=== PATIENT | female | born 1975 | race Caucasian/White ===

== ENCOUNTER 2024-03-26 20:58 | Outpatient (REF) | payer OTHER, SELFPAY ==
[2024-04-03 14:07] LABS: Age Gdln ACOG Testing Note (.); HPV Aptima Negative (Negative); IGP, Aptima HPV, rfx 16/18,45 Note (.)
== END 2024-03-26 20:59 | disposition home or self-care (01) ==
LOC: LAB 20:58
PROVIDERS: PCP Family Medicine; Visit Provider Obstetrics & Gynecology
DX: Z01.419 Encounter for gynecological examination (general) (routine) without abnormal findings (principal)
CPT/HCPCS: 87624; 88175

== ENCOUNTER 2025-04-01 22:05 | Outpatient (REF) | payer OTHER, SELFPAY ==
--- OUTSIDE RECORDS SUMMARY | 2025-03-19 23:59 | XMS_ITS | Continuity of Care Document ---
Author Organization [facility] Address [address] [place] [address] Care Team Providers Care Shingle Sawyer Name Role Phone GRACE DANIELS Primary Care Physician [phone] Encounter FT_AMBFIN [id number] Date(s): 03/19/25 - 03/19/25 [facility] [address] [place] [id number]- Encounter Diagnosis Low back pain(Discharge Diagnosis) - 03/19/25 Discharge Disposition: Home (Routine DC) Attending Physician: Alana Hernandez DO Encounter Type: Clinic Allergies, Adverse Reactions, Alerts No Known Allergies Treatment Plan Future Scheduled Tests Radiology* MRI Spine Lumbar w/ + w/o Contrast 10/15/24 Immunizations Given and Recorded VaccineDateStatusRefusal ReasonFluzone PF Prefilled Syringe 2024- GivenFluzone 0.5-5ml jqyrgucmi10/31/24Recordedinfluenza virus vaccine, inactivated preservative-free quadrivalent intramuscular bfizgptauw90/13/23Given influenza virus vaccine, subeweignhi03/28/22Recordedinfluenza virus vaccine, oimfrpeymsm75/14/22Recordedinfluenza virus vaccine, pfaxaxrqoqr50/6/21Recorded influenza virus vaccine, aohzssbrgmx61/6/29VtcbvjrxSSRE-OpQ-6 (COVID-19) mRNA- 1273 wgyawmt25/30/30EcqgvnngWWEQ-EhZ-6 (COVID-19) mRNA-1273 vaccine05/02/20 XlzktstzIPDL-IgT-1 (COVID-19) mRNA-1273 /29/20Recorded Medications Adipex-P 37.5 mg Tab 37.5 mg = 1 tab(s), Oral, Daily, # 30 tab(s), Refills(s) 5, Pharmacy: [facility], 172, cm, 01/10/25 10:29:00 EDT, Height/Length Dosing, 98.7, kg, 01/10/25 10:29:00 EDT, Weight Dosing Start Date: 01/10/25 Status: Ordered Medication Dispense Status: Completed Quantity: 30.0 Unit: tab(s) Total Allowed Fills: 6 Fills Dispensed: 0 Indications: Persons encountering health services in other specified circumstances; Acute candidiasis of vulva and vagina; erythromycin Opth 0.5% Oint 0.5 in, OPTH, QID, 3.5 gram, Refill(s) 1, [facility], 172, cm, 10/15/24 11:42:00 EDT, Height/Length Dosing, 98.7, kg, 10/15/24 11:42:00 EDT, Weight Dosing Start Date: 01/07/25 Status: Ordered Medication Dispense Status: Completed Quantity: 3.5 Unit: g Total Allowed Fills: 2 Fills Dispensed: 0 Indications: Unspecified conjunctivitis; fluconazole 150 mg Tab 150 mg = 1 tab(s), Oral, Once, Take one with the onset of symptoms- may repeat in 72 hours, # 2 tab(s), Refills(s) 11, Pharmacy: [facility], 172, cm, 01/10/25 10:29:00 EDT, Height/Length Dosing, 98.7, kg, 01/10/25 10:29:00 EDT, Weight Dosing Start Date: 01/10/25 Status: Ordered Medication Dispense Status: Completed Quantity: 2.0 Unit: tab(s) Total Allowed Fills: 12 Fills Dispensed: 0 indomethacin 75 mg Cap-ER 75 mg = 1 cap(s), Oral, BID, PRN for pain, # 60 cap(s), Refills(s) 0, Pharmacy: [facility], 172, cm, 10/15/24 11:42:00 EDT, Height/Length Dosing, 98.7, kg, 10/15/24 11:42:00 EDT, Weight Dosing Start Date: 10/15/24 Status: Ordered Medication Dispense Status: Completed Quantity: 60.0 Unit: cap(s) Total Allowed Fills: 1 Fills Dispensed: 0 Indications: Other chronic pain; Dorsalgia, unspecified; Keflex 500 mg oral capsule 500 mg = 1 cap(s), Oral, Daily, # 30 cap(s), Refills(s) 6, Pharmacy: [facility], 172, cm, 01/10/25 10:29:00 EDT, Height/Length Dosing, 98.7, kg, 01/10/25 10:29:00 EDT, Weight Dosing Start Date: 01/28/25 Status: Ordered Medication Dispense Status: Completed Quantity: 30.0 Unit: cap(s) Total Allowed Fills: 7 Fills Dispensed: 0 Mirena 52 mg intrauteral device 52 mg = 1 EA, IntraUteral, Once, X 1 dose(s), # 1 EA, Refills(s) 0 Start Date: 04/08/22 Status: Ordered Medication Dispense Status: Completed Quantity: 1.0 Unit: EA Total Allowed Fills: 1 Fills Dispensed: 0 Problem List ConditionConfirmationCourseEffective DatesStatusHealth StatusInformantBMI 33.0-33.9,adultConfirmedActiveObesity (BMI 30-39.9)ConfirmedActiveExcessive dietary caloric intakeConfirmedActiveAcute on chronic back painConfirmedActive Low back painConfirmedActiveNonsmokerConfirmedActiveBreast cancer screening ConfirmedActiveAnnual physical examConfirmedActive Procedures ProcedureDateRelated DiagnosisBody SiteStatusBack braces, deviceCompleted sectionCompletedTonsillectomyCompleted Social History Social History TypeResponseSmoking StatusNever (less than 100 in lifetime);Never ; Concerns about tobacco use in household: No; Smoking Cessation Yes entered on: 01/10/25Birth SexFemaleSex Representation Patient Care team information Care Team Personnel Name: GRACE DANIELS CNP Position: [facility] - Primary Care - [facility] Member Role: Primary Care Physician Address: [address] [place] [phone] Telecom: Name: Evie Negrete Member Role: [employer]: Claims Followup Rep (Emely) Care Team Related Persons Name: ZEV COLON Name: ZEV COLON Name: ZEV COLON Name: DELISA DIAZ Name: RASHMI DIAZ Insurance Providers Guarantor name: ELEONORA DIAZ Health Plan Information #: 1 Payer: [employer] Payer Identifier: [id number] Member Number: [id number] Group Number: [id number] Subscriber Identifier: [id number] Relationship to Subscriber: Self/Patient Coverage Type: Private Health Insurance Coverage Verification Date: Telecom: [phone] Address: [facility] [id number] [place] [phone]
--- OUTSIDE RECORDS SUMMARY | 2025-04-01 09:30 | XMS_ITS | Encounter Summary ---
Author Organization [facility] Address [address] [facility] [place] [address] Care Team Providers Care Clerical Support Specialist Name Role Phone Unavailable Primary Care Provider Unavailabl e Reason for Visit * ReasonCommentsGynecologic Exam Encounter Details DateTypeDepartmentCare Team (Latest Contact Info)Pnletshxtkd90/29/2025 9:30 AM ESTProcedure Visit [facility] [address] [place] [address] Camille Ruiz PA [address] [place] [address] Well woman exam with routine gynecological exam; Breast cancer screening by mammogram Social History Tobacco UseTypesPacks/DayYears UsedDateSmoking Tobacco: Never Assessed CommentsUnknownSex and Gender InformationValueDate RecordedSex Assigned at Not on fileLegal OlhXotqnw36/15/2023 7:36 PM EDTGender IdentityNot on fileSexual OrientationNot on filedocumented as of this encounter Last Filed Vital Signs Vital SignReadingTime TakenCommentsBlood Nudzqnwm340/7204/01/2025 9:36 AM EST Pulse--Temperature--Respiratory Rate--Oxygen Saturation--Inhaled Oxygen Concentration--Nelefo32.7 kg (200 lb)04/01/2025 9:36 AM ESTHeight--Body Mass Index--documented in this encounter Progress Notes * CAMELIA Mckeon - 04/01/2025 9:30 AM EST Reason for Appointment: Patient ID: Destiny Webster is a 49 y.o. female who presents for Gynecologic Exam Patient presents today for Annual Exam. MEDICATIONS Current Outpatient Medications Medication Instructions nitrofurantoin (macrocrystal-monohydrate) (MACROBID) 100 mg, 2 times daily ALLERGIES Allergies Allergen Reactions Macrolides And Ketolides PROBLEMS Active Ambulatory Problems Diagnosis Date Noted No Active Ambulatory Problems Resolved Ambulatory Problems Diagnosis Date Noted No Resolved Ambulatory Problems No Additional Past Medical History HISTORY PAST MEDICAL HISTORY SOCIAL HISTORY No past medical history on file. Social History Tobacco Use Smoking status: Not on file Smokeless tobacco: Not on file Substance Use Topics Alcohol use: Not on file Drug use: Not on file FAMILY HISTORY No family history on file. SURGICAL HISTORY No past surgical history on file. REVIEW OF SYSTEMS Review of Systems: Review of Systems Constitutional: Negative. HENT: Negative. Eyes: Negative. Respiratory: Negative. Cardiovascular: Negative. Gastrointestinal: Negative. Genitourinary: Negative. Musculoskeletal: Negative. Skin: Negative. Neurological: Negative. All other systems reviewed and are negative. Hematological: Negative. Endocrine: Negative. Allergic/Immunologic: Negative. OBJECTIVE Objective: Physical Exam Constitutional: Appearance: Normal appearance. She is well-developed. Genitourinary: Vulva normal. Right Adnexa: not tender and no mass present. Left Adnexa: not tender and no mass present. No cervical discharge. IUD strings visualized. Breasts: Breasts are soft. Right: Normal. Left: Normal. HENT: Head: Normocephalic. Nose: Nose normal. Mouth/Throat: Mouth: Mucous membranes are moist. Cardiovascular: Rate and Rhythm: Normal rate and regular rhythm. Pulmonary: Effort: Pulmonary effort is normal. Breath sounds: Normal breath sounds. Abdominal: General: Bowel sounds are normal. There is no distension. Palpations: Abdomen is soft. Tenderness: There is no abdominal tenderness. There is no guarding or rebound. Musculoskeletal: General: No swelling. Normal range of motion. Cervical back: Normal range of motion. Right lower leg: No edema. Left lower leg: No edema. Neurological: General: No focal deficit present. Mental Status: She is alert and oriented to person, place, and time. Skin: General: Skin is warm and dry. Psychiatric: Mood and Affect: Mood normal. Behavior: Behavior normal. Vitals and nursing note reviewed. Exam conducted with a senior software project manager present. Vitals: There is no height or weight on file to calculate BMI. BP: No LMP recorded. Assessment/Plan ICD-10-CM 1. Well woman exam with routine gynecological exam Z01.419 THIN PREP TIS PAP AND HR HPV DNA 2. Breast cancer screening by mammogram Z12.31 Bilateral screening mammogram Bilateral screening mammogram Assessment/Plan Annual: Patient presents today for an annual exam. Patient states she is doing well and has no complaints. Pap was obtained without difficulty and patient given mammogram order to have scheduled/obtained. Orders Placed This Encounter Procedures Bilateral screening mammogram Follow Up: Patient is to return in one year for annual unless needed otherwise. Documented by Josie Tate MA on behalf of: CAMELIA Mckeon documented in this encounter Plan of Treatment NameTypePriorityAssociated DiagnosesOrder ScheduleBilateral screening mammogram ImagingRoutine Breast cancer screening by mammogram Expected: 04/01/2025 (Approximate), Expires: 06/01/2026THIN PREP TIS PAP AND HR HPV DNAPathology and CytologyRoutine Well woman exam with routine gynecological exam Ordered: 04/01/2025documented as of this encounter Visit Diagnoses Diagnosis Well woman exam with routine gynecological exam Routine gynecological examination Breast cancer screening by mammogram documented in this encounter
--- OUTSIDE RECORDS SUMMARY | 2025-04-01 22:08 | XMS_ITS | CCD ---
Author Organization [facility] CliniSynv Care Team Providers Care Lead Simulation Modeling Engineer Name Role Phone LAURA BARROW Referring Unavailable LAWANDA CONTRERAS Primary Care Unavailable Alison Whitt Primary Care Physician [phone] NASEEM, DR MAYES Admitting Unavailable NASEEM, DR MAYES Attending Unavailable ALISON WHITT Primary Care Unavailable NASEEM, DR MAYES Consulting Unavailable NASEEM, DR MAYES Admitting Unavailable NASEEM, DR MAYES Attending Unavailable ALISON WHITT Primary Care Unavailable NASEEM, DR MAYES Consulting Unavailable NASEEM, DR MAYES Admitting Unavailable NASEEM, DR MAYES Attending Unavailable REQUEST, DR CASIE LISTED [facility] Campos Consulting Unavailable NASEEM, DR MAYES Consulting Unavailable Alison Whitt Primary Care Physician [phone] Unavailable Primary Care Provider UnavailMACIEJ Jon Attending Unavailable JEREMIAH, GRACE A Admitting Unavailable JEREMIAH, GRACE A Attending Unavailable Ronit FISH Attending Unavailable Alison Whitt Attending Unavailable JEREMIAH, GARCE A Attending Unavailable JEREMIAH, GRACE A Attending Unavailable Alison Whitt Attending Unavailable JEREMIAH, GRACE A Attending Unavailable JEREMIAH, GRACE A Attending Unavailable JEREMIAH, GRACE A Attending Unavailable REFERRAL, SELF Admitting Unavailable REFERRAL, SELF Attending Unavailable REFERRAL, SELF Referring Unavailable NASEEMMaciej R Consulting Unavailable NASEEMDO Mayes R Consulting Unavailable Catracho GUSMANy R Consulting Unavailable JEREMIAH, GRACE A Attending Unavailable JEREMIAH, GRACE A Admitting Unavailable JEREMIAH, GRACE A Attending Unavailable JEREMIAH, GRACE A Attending Unavailable JEREMIAH, GRACE A Attending Unavailable JEREMIAH, GRACE A Attending Unavailable JEREMIAH, GRACE A Admitting Unavailable NASEEMCatrachoy R Admitting Unavailable NASEEM Maciej R Attending Unavailable Maciej GUSMAN Referring Unavailable Medications Current Medications MedicationDrug Class(es)DatesSig (Normalized)Sig (Original)acetaminophen 300 mg / butalbital 50 mg / caffeine 40 mg oral capsule (3 sources)Barbiturate, Central Nervous System Stimulant, MethylxanthineStart: 99-40-6229Ijhjzjvo oral capsule See Instructions, 30 cap(s), Refill(s) 0, one capsule every 4 hours, not to exceed 6 tablets/day, [facility], 172, cm, 02/03/23 16:04:00 EDT, Height/Length Dosing, 85.2, kg, 02/03/23 16:04:00 EDT, Weight Dosing Start Date: 04/25/23 Status: Orderedcephalexin 500 mg oral capsule (1 source)Cephalosporin AntibacterialStart: 03-26-2024 End: 41-78-3984csfn 1 capsule by mouth once dailycephalexin (Keflex) 500 MG capsule Indications: Vaginitis and vulvovaginitis Take 1 capsule (500 mg) by mouth Daily 30 capsule 03/26/2024 04/25/2024 ActiveLORazepam 0.5 mg oral tablet (2 sources)BenzodiazepineStart: 04-24-5966Fhppeh 0.5 mg Tab 0 = 1 tab(s), Oral, q8hr, PRN as needed for anxiety, # 30 tab(s), Refills(s) 0, Pharmacy: [facility], 172, cm, 04/08/22 14:58:00 EST, Height/Length Dosing, 93.9, kg,04/08/22 14:58:00 EST, Weight Dosing Start Date: 04/08/22 Status: Ordered methocarbamol 750 mg oral tablet (1 source)Muscle RelaxantStart: 02-03-2023 End: 80-98-9379twfq 1 tablet by mouth three times daily as needed for pain Robaxin-750 oral tablet 750 mg = 1 tab(s), Oral, TID, PRN as needed for pain, X 3 day(s), # 9 tab(s), Refills(s) 0, Pharmacy: [facility], 172, cm, 02/03/23 16:04:00 EDT, Height/LengthDosing, 85.2, kg, 02/03/23 16:04:00 EDT, Weight Dosing Start Date: 02/03/23 Stop Date: 02/06/23 Status: Ordered nitrofurantoin, macrocrystals 25 mg / nitrofurantoin, monohydrate 75 mg oral capsule (3 sources)Nitrofuran AntibacterialStart: 79-32-9293nxdq 1 capsule by mouth in the morningnitrofurantoin, macrocrystal-monohydrate, (Macrobid) 100 MG capsule Take 100 mg by mouth in the morning and 100 mg before bedtime. 03/22/2024 Active ondansetron 4 mg oral tablet (3 sources)Serotonin-3 Receptor AntagonistStart: 71-75-7368jdmv 1 tablet by mouth every eight hours as needed for nauseaZofran 4 mg Tab 4 mg = 1 tab(s), Oral, q8hr, PRN Nausea/Vomiting, # 12 tab(s), Refills(s) 0, Pharmacy: [facility] #[id number], 172, cm, 09/30/23 9:41:00 EDT, Height/Length Dosing, 92, kg, 09/30/23 9:41:00 EDT, Weight Dosing Start Date: 01/04/24 Status: Ordered phentermine hydrochloride 37.5 mg oral tablet (3 sources)Sympathomimetic Amine AnorecticStart: 31-01-2480ntph 1 tablet by mouth once dailyphentermine 37.5 mg Tab 37.5 mg = 1 tab(s), Oral, Daily, # 30 tab(s), Refills(s) 0, Pharmacy: [facility], 172, cm, 09/30/23 9:41:00 EDT, Height/Length Dosing, 92, kg, 09/30/23 9:41:00EDT, Weight Dosing Start Date: 09/30/23 Status: OrderedStart: 61-30-7756sifw 1 tablet by mouth once dailyphentermine 37.5 mg Tab 37.5 mg = 1 tab(s), Oral, Daily, # 30 tab(s), Refills(s) 1, Pharmacy: [facility], 186, cm, 01/14/23 8:23:00 EDT, Height/Length Dosing, 84.4, kg, 01/14/23 8:23:00 EDT, Weight Dosing Start Date: 01/14/23 Status: OrderedpredniSONE 20 mg oral tablet (1 source)Start: 02-03-2023 End: 57-11-9889fqch 2 tablets by mouth once dailypredniSONE 20 mg Tab 40 mg = 2 tab(s), Oral, Daily, X 5 day(s), # 10 tab(s), Refills(s) 0, Pharmacy: [facility], 172, cm, 02/03/23 16:04:00 EDT, Height/Length Dosing, 85.2, kg, 02/03/23 16:04:00 EDT, Weight Dosing Start Date: 02/03/23 Stop Date: 02/08/23 Status: Ordered Completed/Discontinued Medications MedicationDrug Class(es)DatesSig (Normalized)Sig (Original)fluconazole 150 mg oral tablet (1 source)Azole AntifungalStart: 36-47-0568etuw 1 tablet by mouth onceDiflucan 150 mg Tab 150 mg = 1 tab(s), Oral, Once, Take one tablet now; may repeat in 72 hours, # 2tab(s), Refills(s) 0, Pharmacy: [facility]/pharmacy #[id number], 172, cm, 09/30/23 9:41:00 EDT, Height/Length Dosing, 92, kg, 09/30/23 9:41:00 EDT, Weight Dosing Start Date: 02/02/24 Status: Orderedlevonorgestrel 0.773683 mg/hr intrauterine system (9 sources)Progestin, Progestin-containing Intrauterine DeviceStart: 02-28-2024 End: 17-45-0583Dluotbxkabmnls intrauterine device 52 mgStart: 02-28-2024 End: 40-95-583252 mg, Intrauterine, Once PRN Procedure, Starting on Tue02/28/24 at 1030, For 1 doseStart: 63-86-1958Yglmnw 52 mg intrauteral device 52 mg = 1 EA, IntraUteral, Once, X 1 dose(s), # 1 EA, Refills(s) 0 Start Date: 04/08/22 Status: Ordered Problems Active Problems Problem ClassificationProblemDateDocumented DateEpisodic/ChronicContraceptive and procreative management (2 sources)Contraception status; Translations: [Encounter for removal and reinsertion of intrauterine contraceptive device]54-27-9840NgsvvggxCazjx nutritional; endocrine; and metabolic disorders (5 sources)Calorie -66-8479FesgswbTwnvx nutritional; endocrine; and metabolic disorders (5 sources)Mmjuwnigix54-09-1383HhdqaxulUeaxh screening for suspected conditions (not mental disorders or infectious disease) (8 sources)Screening for malignant neoplasm of colon done; Translations: [Encounter for screening for malignant neoplasm of colon]Onset: 06-12-2021 EpisodicSpondylosis; intervertebral disc disorders; other back problems (1 source)Backache; Translations: [Dorsalgia, unspecified]Onset: 02-03-2023 EpisodicUnclassified (12 sources)Patient encounter ioktox41-44-8209 Past or Other Problems Problem ClassificationProblemDateDocumented DateEpisodic/ChronicAbdominal pain (4 sources)Pelvic and perineal pain; Translations: [PELVIC AND PERINEAL PAIN] Onset: 80-71-4871MuzrdsztDqjorhynkjjuc and screening for infectious disease (1 source)Encounter for screening for human papillomavirus (HPV); Translations: [ENC SCREENING HUMAN PAPILLOMAVIRUS]Onset: 77-97-4772CrpqlpzwCixcwpm cyst (1 source)Other ovarian cyst, right side; Translations: [OTHER OVARIAN CYST RIGHT SIDE]Onset: 94-57-2273Tueecoef Results Test NameValueInterpretationReference RangeFacilityFami Medicine Office/Clinic Noteon 22-11-5895Lavxfj Medicine Office/Clinic NoteFamily Medicine Office/Clinic Note Chief Complaint Weight management & yeast infection History of Present Illness 49 year old patient presents today to discuss weight management. She reports she has been having difficulty losing weight since the beginning of this year. She states she would like to lose 20 pounds. Her goal weight is 200 lbs. She reports she has increased her H2O intake, has decreased snacking, and has focused on smaller portions. She has used adipex in the past with positive results. She would like to try this medication again. She is aware she needs to show progress of 5% weight loss over 90 days. Review of Systems Constitutional: no fever, no chills, no sweats, no weakness Respiratory: no shortness of breath, no cough, no orthopnea, no wheezing Cardiovascular: no chest pain, no palpitations, no edema Additional ROS info: Except as noted in the above Review of Systems and in the History of Present Illness all other systems have been reviewed and are negative or noncontributory. Physical Exam General: alert, no acute distress Cardiovascular: regular rate and rhythm, normal peripheral perfusion Respiratory: Lungs CTA, respirations non labored Extremities: no deformity, no trauma Neurological: oriented x 4, LOC appropriate for [facility] normal Assessment/Plan 1. Encounter for weight management (Z76.89: Persons encountering health services in other specifiedcircumstances) BMI 33.36 today in the office Discuss medication for weight loss OARRS reviewed today and found to be appropriate Start phentermine 37.5 mg take one tablet po in the AM Encourage daily exercise & portion control Explained to patient medication can be prescribed monthly when patient shows progress and a 5 % weight reduction in 3 months f/u in 4 weeks Ordered: phentermine, 37.5 mg = 1 tab(s), Oral, Daily, # 30 tab(s), Refills(s) 5, Pharmacy: [facility], 172, cm, 01/10/25 10:29:00 EDT, Height/Length Dosing, 98.7, kg, 01/10/25 10:29:00 EDT, Weight Dosing 2. Vaginal yeast infection (B37.31: Acute candidiasis of vulva and vagina) Ordered: Orders: fluconazole, 150 mg = 1 tab(s), Oral, Once, Take one with the onset of symptoms- may repeat in 72 hours, # 2 tab(s), Refills(s) 11, Pharmacy: [facility], 172, cm, 01/10/25 10:29:00 EDT, Height/Length Dosing, 98.7, kg, 01/10/25 10:29:00 EDT, Weight... Follow-up No qualifying data available Patient Education Vaginal Yeast Infection, Adult Problem List/Past Medical History Ongoing Acute on chronic back pain Annual physical exam BMI 33.0-33.9,adult Breast cancer screening Excessive dietary caloric intake Low back pain Nonsmoker Obesity (BMI 30-39.9) Historical No qualifying data Procedure/Surgical History Back braces, device, section, Tonsillectomy. Medications Adipex-P 37.5 mg Tab, 37.5 mg= 1 tab(s), Oral, Daily, 5 refills erythromycin Opth 0.5% Oint, 0.5 in, OPTH, QID, 1 refills fluconazole 150 mg Tab, 150 mg= 1 tab(s), Oral, Once, 11 refills indomethacin 75 mg Cap-ER, 75 mg= 1 cap(s), Oral, BID, PRN Mirena 52 mg intrauteral device, 52 mg= 1 EA, IntraUteral, Once Allergies No Known Allergies Social History Alcohol Current. Wine. 1-2 times per week., 05/24/2024 Substance Abuse - Denies Substance Abuse, 04/08/2022 Never., 05/24/2024 Tobacco - Denies Tobacco Use, 04/08/2022 Never (less than 100 in lifetime) Tobacco Use:. Never Smokeless Tobacco Use:. Household tobacco concerns: No. Yes, 01/10/2025 Family History Heart disease: Father. Hypertension: Mother. Hypothyroidism: Mother. Immunizations Vaccine Date Status influenza virus vaccine, inactivated 02/02/2024 Recorded influenza virus vaccine, inactivated 01/14/2023 Given influenza virus vaccine, inactivated 01/29/2022 Recorded influenza virus vaccine, inactivated 01/15/2022 Recorded SARS-CoV-2 (COVID-19) mRNA-1273 vaccine 03/03/2021 Recorded influenza virus vaccine, inactivated 01/07/2021 Recorded SARS-CoV-2 (COVID-19) mRNA-1273 vaccine 05/02/2020 Recorded SARS-CoV-2 (COVID-19) mRNA-1273 vaccine 04/01/2020 Recorded influenza virus vaccine, inactivated 02/07/2015 RecordedOhioHealth Mansfield HospitalComment on above:Result Comment: Electronically Signed By: GRACE DANIELS CNP\.bello\Date and Time Signed: 01/10/25 12:08 EDTAmbulatory Visit Summaryon 90-37-8792Jjijuidose Visit SummaryAmbulatory Visit Summary ELEONORA DIAZ :1975 Visit Date:10/15/2024 Ambulatory Visit Instructions Your Diagnosis Acute on chronic back pain BMI 33.0-33.9,adult Obesity (BMI 30-39.9) Your Care Team Attending Physician - GRACE DANIELS CNP Primary Care Physician - GRACE DANIELS CNP This Is Your Medications List cephalexin (Keflex 500 mg Cap) indomethacin (indomethacin 75 mg Cap-ER) levonorgestrel (Mirena 52 mg intrauteral device) Procedures Performed Back braces, device, section, Tonsillectomy. Discharge Vitals Temperature (Oral) 36.8 ???C Heart Rate (Peripheral) 100 Respiratory Rate 18 Blood Pressure 120/80 Height 172 cm Height 68 in Weight 98.7 kg Weight 217.596 lb BMI 33.36 What to do next You Need to Complete the Following XR Spine Lumbosacral Minimum 4 Views, 10/15/24, Routine, Order for future visit, Transport Mode: Ambulatory, Reason: Back pain, No, Acute on chronic back pain, pp_set_radiology_subspecialty, Mora -Brendan Medications What How Much When Why Instructions New indomethacin (indomethacin 75 mg Cap-ER) 1 Capsules By Mouth 2 times a day as needed for for pain Acute on chronic back pain Other chronic pain Pickup at [facility] Unchanged cephalexin (Keflex 500 mg Cap) 1 Capsules By Mouth Every day Unchanged levonorgestrel (Mirena 52 mg intrauteral device) 1 Each Intrauteral Once Duration: 1 Doses Pharmacy Information [facility]: [address], [place] [id number] [phone] Allergies No Known Allergies Problems Ongoing - Any problem that you are currently receiving treatment for. Acute on chronic back pain Annual physical exam BMI 33.0-33.9,adult Breast cancer screening Excessive dietary caloric intake Low back pain Obesity (BMI 30-39.9) Overweight Patient Survey You may receive a survey via text or e-mail asking about your office visit. Please share your experience with us by completing your survey. We appreciate your feedback and thank you for choosing us for your care. Patient Portal You may access all of your results and other medical record information on our secure patient portal. If you are not signed up for this yet, please contact [employer] at [phone] to get signed up today. Language Information Language assistance services are available as needed. NormalFisher [facility] Medicine Office/Clinic Noteon 03-57-1947Baujyn Medicine Office/Clinic NoteFacape cod and the islands [facility] Medicine Office/Clinic Note Chief Complaint Acute Visit HPI Staff Pt presents today for back pain. Pain characteristics: Pain location: Back Intensity:6/10 Onset: cpl weeks ago History of Present Illness Patient presents today for acute on chronic back pain. She reports she has had prior back surgery and about 1 1/2 weeks ago she had a flare of her back pain. She had a kenalog injection at that time which helped short term. She reports she reports yesterday she went to get out of her van and she felt something pull in her back again at that time she was barely able to walk and she was having extreme difficulty getting on the and out of her vehicle she states she almost vomited from the pain. She notified this provider and a Medrol Dosepak was sent into her pharmacy she had also tried some meloxicam and a muscle relaxer she took a indomethacin with some relief. she rates her pain a 9/10. Review of Systems PHQ Score Initial Depression Screen Score: 0 SCORE Physical Exam Vitals & Measurements T: 36.8 ???C(Oral) HR: 100(Peripheral) RR: 18 BP: 120/80 SpO2: 96% HT: 68 in HT: 172 cm WT: 217.596 lb WT: 98.7 kg BMI: 33.36 General: alert, no acute distress Skin: warm, dry Cardiovascular: regular rate and rhythm, normal peripheral perfusion Respiratory: Lungs CTA, respirations non labored Back: Moderate tenderness, Abnormal ROM, Extremities: no deformity, no trauma Neurological: oriented x 4, LOC appropriate for age, CN II-XII intact, motor strength equal Assessment/Plan 1. Acute on chronic back pain (M54.9: Dorsalgia, unspecified) Start indomethacin 75 mg ER Continue the medrol dose pack awaiting Xray results OARRS reviewed and found to be appropriate Medication Agreement completed today. F/U to be determined. Ordered: acetaminophen-hydrocodone, 1 tab(s), Oral, q4hr for pain for 2 day(s), 10 tab(s), Refill(s) 0, [facility], cm, 10/15/24 11:42:00 EDT, Height/Length Dosing, 98.7, kg, 10/15/24 11:42:00 EDT, Weight Dosing indomethacin, 75 mg = 1 cap(s), Oral, BID, PRN for pain, # 60 cap(s), Refills(s) 0, Pharmacy: [facility], 172, cm, 10/15/24 11:42:00 EDT, Height/Length Dosing, 98.7, kg, 10/15/24 11:42:00 EDT, Weight Dosing XR Spine Lumbosacral Minimum 4 Views 2. BMI 33.0-33.9,adult (Z68.33: Body mass index [BMI] 33.0-33.9, adult) BMI 33.36 3. Obesity (BMI 30-39.9) (E66.9: Obesity, unspecified) The standard range for ages 18 and older is >=18.5 and < 25 kg/m2. Your BMI today was above this range, this falls in the overweight to obese category and there are medical benefits to weight loss. We can offer counselling, referral, and/or medical support in addressing this problem. Your BMIand weight management will be followed at subsequent visits. Orders: fluconazole, 150 mg = 1 tab(s), Oral, Once, Take one tablet with the onset of symtoms; may repeat in 72 hours, # 2 tab(s), Refills(s) 0, Pharmacy: [facility] #[id number], 172, cm, 05/25/24 9:23:00 EST, Height/Length Dosing, 97.8, kg, 05/25/24 9:23:00 EST, Weight Dosing fluconazole, 150 mg = 1 tab(s), Oral, q7day, # 4 tab(s), Refills(s) 0, Pharmacy: [facility]/pharmacy #[id number], 172, cm, 05/25/24 9:23:00 EST, Height/Length Dosing, 97.8, kg, 05/25/24 9:23:00 EST, Weight Dosing ondansetron, 4 mg = 1 tab(s), Oral, q8hr, PRN Nausea/Vomiting, # 12 tab(s), Refills(s) 0, Pharmacy:[facility]/pharmacy #[id number], 172, cm, 09/30/23 9:41:00 EDT, Height/Length Dosing, 92, kg, 09/30/23 9:41:00 EDT, Weight Dosing Follow-up No qualifying data available Patient Education Acute Back Pain, Adult Problem List/Past Medical History Ongoing Acute on chronic back pain Annual physical exam BMI 33.0-33.9,adult Breast cancer screening Excessive dietary caloric intake Low back pain Obesity (BMI 30-39.9) Overweight Historical No qualifying data Procedure/Surgical History Back braces, device, section, Tonsillectomy. Medications indomethacin 75 mg Cap-ER, 75 mg= 1 cap(s), Oral, BID, PRN Mirena 52 mg intrauteral device, 52 mg= 1 EA, IntraUteral, Once [place] 325 mg-5 mg oral tablet, 1 tab(s), Oral, q4hr, PRN Allergies No Known Allergies Social History Alcohol Current. Wine. 1-2 times per week., 05/24/2024 Substance Abuse - Denies Substance Abuse, 04/08/2022 Never., 05/24/2024 Tobacco - Denies Tobacco Use, 04/08/2022 Never (less than 100 in lifetime) Tobacco Use:. Never Smokeless Tobacco Use:. Household tobacco concerns: No. Yes, 10/15/2024 Family History Heart disease: Father. Hypertension: Mother. Hypothyroidism: Mother. Immunizations Vaccine Date Status influenza virus vaccine, inactivated 02/02/2024 Recorded influenza virus vaccine, inactivated 01/14/2023 Given influenza virus vaccine, inactivated 01/29/2022 Recorded influenza virus vaccine, inactivated 01/15/2022 Recorded SARS-CoV-2 (COVID-19) mRNA-1273 vaccine 03/03/2021 Recorded influenza virus vaccine, inactivated 01/07/2021 Recorded SARS-CoV (more content not included)...[facility] Mansfield HospitalComment on above:Result Comment: Electronically Signed By: GRACE DANIELS CNP\jason\Date and Time Signed: 10/15/24 12:20 EDTXR Spine Lumbosacral Minimum 4 Viewson 24-66-2010CQ Spine Lumbosacral Minimum 4 ViewsExam Date/Time: 10/15/2024 13:23 EDT Reason for Exam: Back pain Report IMPRESSION: NO ACUTE OSSEOUS ABNORMALITY OR SIGNIFICANT INTERVAL CHANGE. EXAMINATION: XR Spine Lumbosacral Minimum 4 Views TECHNIQUE: AP, lateral, bilateral oblique views of the lumbar spine and AP and lateral coned down view of the lumbosacral junction HISTORY: Low back pain COMPARISONS: Lumbar spine radiographs 02/03/2023. FINDINGS: Lumbar spine alignment is within normal limits. Stable chronic mild compression deformity of L1. Lumbar vertebral body heights are otherwise maintained. Moderate intervertebral disc height loss at L5-S1. No acute fracture. No spondylolysis or spondylolisthesis. Postsurgical changes of thoracolumbar spine fusion again identified. Ordering Provider: GRACE DANIELS FINAL REPORT Dictated: 10/15/2024 2:37 pm Carlos Franz DO Signed (Electronic Signature): 10/15/2024 2:37 pm Signed by: Carlos Franz DO Transcribed by: PAO Technologist: [facility] CenterMA Mamm Diag w/CAD if perf and 3D RTon [id number] Mamm Diag w/CAD if perf and 3D RT Exam Date/Time: 05/29/2024 13:16 EST Reason for Exam: R92.8 Report IMPRESSION: BIRADS 2 BENIGN FINDINGS, NORMAL INTERVAL FOLLOW-UP Follow-up: 12 MONTH RECALL Category C - The breasts are heterogeneously dense, which may obscure small masses. EXAM: MA Mamm Diag w/CAD if perf and 3D RT, US Breast Unilateral Rt Complete DATE: 05/29/2024 1:02 PM CLINICAL HISTORY: R92.8. COMPARISONS: Screening mammograms, most recently 05/18/2024. TECHNIQUE: Full field ML and focal compression 2D mammograms and 3D breast tomosynthesis were obtained of the right breast. Ultrasound was performed at all clock face positions and in the central/retroareolar region of the right breast. FINDINGS: There is persistence of an ovoid density within the superior right breast at an anterior depth breast diagnostic mammography. Ultrasound, at the 12:00 position of the right breast is an approximately 1.8 x 1.8 x 1.0 cm simple cyst, which accounts for the mammographic area of concern. A few other smaller simple cysts are noted elsewhere. There are no suspicious features, worrisome masses, dilated ducts, lymphadenopathy, or other findings of concern identified. Dense Breast: Yes. CAD analysis was performed and used in the interpretation. Board Certified Radiologists. Accredited by the ACR and FDA. MAMMOGRAPHY IS VERY IMPORTANT TO YOUR HEALTH. THE CURRENT [employer] AND [employer]WORK GUIDELINES RECOMMENDS ANNUAL MAMMOGRAPHY BEGINNING AT AGE 40. THIS FACILITY UTILIZES A REMINDER SYSTEM TO ENSURE ALL PATIENTS RECEIVE REMINDER Report NOTIFICATIONS AT THE APPROPRIATE TIME BASED ON THE RECOMMENDATIONS OF THIS EXAM. Ordering Provider: Maciej GUSMAN FINAL REPORT Dictated: 05/29/2024 3:17 pm Yousif Cunningham MD Signed (Electronic Signature): 05/29/2024 3:17 pm Signed by: Yousif Cunningham MD Transcribed by: PAO Technologist: [facility] Assessment: BI-RADS Category 2-Benign finding Recommendation: Normal interval follow-upOhioHealth Mansfield HospitalUS Breast Unilateral Rt Completeon 52-61-6095WB Breast Unilateral Rt CompleteExam Date/Time: 05/29/2024 13:47 EST Reason for Exam: R92.8 Report PLEASE SEE MA Mamm Diag w/CAD if perf and 3D RT REPORT DATED: 05/29/2024. Ordering Provider: Maciej GUSMAN FINAL REPORT Dictated: 05/29/2024 3:17 pm Yousif Cunningham MD Signed (Electronic Signature): 05/29/2024 3:17 pm Signed by: Yousif Cunningham MD Transcribed by: PAO Technologist: [facility] w/ Auto Diffon 40-02-9518Klhjdgwbe/100 WBC (Bld)0.2 %Normal0.0-2.0[facility] HospitalComment on above:Performed By: #### [id number] #### [facility] [address], [place] [address]Sbptitact/Leukocytes Auto (Bld) [Pure # fraction]0.0 E9/LNormal 0.0-0.2FKettering Health Behavioral Medical CenterComment on above:Performed By: #### [id number] #### [facility] [address], [place] [address]Xvsfsypjljb (Bld) [#/Vol]0.2 E9/LNormal0.0-0.5FKettering Health Behavioral Medical CenterComment on above:Performed By: #### [id number] #### [facility] [address] [place] [address]Tdkkzryvvuk/100 WBC (Bld)2.0 %Normal0.0-8.0[facility] HospitalComment on above:Performed By: #### [id number] #### [facility] Laboratory [address] [place] [address] 16652Ykfkbwbrvlq distribution width (RBC) [Ratio]12.8 %Normal 10.9-14.2FKettering Health Behavioral Medical CenterComment on above:Performed By: #### [id number] #### [facility] Laboratory [address] [place] [address] 86638Exnzityhnz (Bld) [Volume fraction]46.0 %Uwuftw07.0-46.0[facility] HospitalComment on above:Performed By: #### [id number] #### [facility] Laboratory [address] [place] [address] 55741Rfaqvninut (Bld) [Mass/Vol]15.4 g/uVMoonhu33.0-16.0[facility] HospitalComment on above:Performed By: #### [id number] #### [facility] Laboratory [address] [place] [address] 81968Egfjkoiqiuf (Bld) [#/Vol]2.8 E9/LNormal1.0-4.0[facility] HospitalComment on above:Performed By: #### [id number] #### [facility] Laboratory [address] [place] [address] 36074Jaysagflrji/100 WBC (Bld)30.0 %Xhilbv85.0-50.0[facility] HospitalComment on above:Performed By: #### [id number] #### [facility] Laboratory [address] [place] [address] 13935GQI (RBC) [Entitic mass]31.8 pxKobnkh98.0-34.0[facility] HospitalComment on above:Performed By: #### [id number] #### [facility] Laboratory [address] [place] [address] 46511XFCR (RBC) [Mass/Vol]33.4 g/vKEhfnri66.4-36.0[facility] HospitalComment on above:Performed By: #### [id number] #### [facility] Laboratory [address] [place] [address] 65179LAZ (RBC) [Entitic vol]95.4 cTMzwxnu49.0-100.0[facility] HospitalComment on above:Performed By: #### [id number] #### [facility] Laboratory [address] [place] [address] 95174Gdsqxeglz (Bld) [#/Vol]0.5 E9/LNormal0.2-1.0[facility] HospitalComment on above:Performed By: #### [id number] #### [facility] Laboratory [address] [place] [address] 38543Zgujjllpvie (Bld) [#/Vol]5.7 E9/LNormal2.0-7.5FKettering Health Behavioral Medical CenterComment on above:Performed By: #### [id number] #### [facility] Laboratory [address] [place] [address] 80020Tdmnfherfqj/100 WBC (Bld)62.0 %Uyqqoq70.0-75.0[facility] HospitalComment on above:Performed By: #### [id number] #### [facility] Laboratory [address] [place] [address] 39877Lyszykaf mean volume (Bld) [Entitic vol]9.1 fLNormal6.4-10.8 [facility] HospitalComment on above:Performed By: #### [id number] #### [facility] Laboratory [address] [place] [address] 89349Cjjksaotp (Bld) [#/Vol]240.0 E9/ZWfvvcb489.0-500.0[facility] HospitalComment on above:Performed By: #### [id number] #### [facility] Laboratory [address] [place] [address] 65519OGM (Bld) [#/Vol]4.8 E12/LNormal4.3-5.9[facility] HospitalComment on above:Performed By: #### [id number] #### [facility] Laboratory [address], [place] [address]LSX corrected for nucl RBC Auto (Bld) [#/Vol]9.2 E9/LNormal 4.0-11.0[facility] HospitalComment on above:Performed By: #### [id number] #### [facility] Laboratory [address], [place] [address]CNIWEOJOULqscgkf By: SYSTEM SYSTEM on 71-42-0493Ajqccwu [Mass/Vol]4.3 g/dLNormal3.3 - 5.0 gm/dLRemisol ChemAlbumin/Globulin [Mass ratio] 1.7 {ratio}Normal1.1 - 2.2Remisol ChemALP [Catalytic activity/Vol]76 [iU]/d Qvcepe83 - 98 Int._Unit/LRemisol ChemALT No additional P-5'-P [Catalytic activity/Vol]13 [iU]/dNormal6 - 46 Int._Unit/LRemisol ChemAnion gap [Moles/Vol] 10 mmol/LNormal6 - 16 mEq/LRemisol ChemAST [Catalytic activity/Vol]16 [iU]/d Normal5 - 43 Int._Unit/LRemisol ChemBilirubin [Mass/Vol]0.7 mg/dLNormal0.0 - 1.1 mg/dLRemisol ChemCalcium [Mass/Vol]8.7 mg/dLLow8.9 - 11.1 mg/dLRemisol Chem Chloride [Moles/Vol]102 mmol/AGitdrr965 - 111 mmol/LRemisol ChemCholesterol [Mass/Vol]171 mg/aHHwfhnf425 - 200 mg/dLRemisol ChemCholesterol in HDL [Mass/Vol]51 mg/dLInvalid Interpretation CodeRemisol ChemComment on above:Result Comment: '>= 60 LOW RISK' '<= 40 HIGH RISK'Cholesterol in LDL [Mass/Vol]113 mg/dLNormal<=129mg/dLRemisol ChemCholesterol in VLDL [Mass/Vol]17 mg/dLNormal7 - 40 mg/dLRemisol ChemCO2 [Moles/Vol]28 mmol/LJcxkcf41 - 31 mmol/LRemisol ChemCreatinine [Mass/Vol]0.8 mg/dLNormal0.5 - 1.3 mg/dLRemisol HxqklCTA70 mL/min/1.73 m1Sgytgo>=59mL/min/1.73 j3Dqqikaq ChemGlobulin (S) [Mass/Vol]2.6 g/dLNormal1.4 - 4.0 gm/dLRemisol Chem Glucose [Mass/Vol]86 mg/yRVqrdrm53 - 199 mg/dLRemisol ChemPotassium [Moles/Vol] 4.2 mmol/LNormal3.5 - 5.3 mmol/LRemisol ChemProtein [Mass/Vol]6.9 g/dLNormal6.0 - 7.8 gm/dLRemisol ChemSodium [Moles/Vol]136 mmol/GHbkrbz489 - 145 mmol/LRemisol ChemTriglyceride [Mass/Vol]86 mg/dLNormal<=149mg/dLRemisol ChemTSH Qn2.96 m[IU]/LNormal0.34 - 5.60 mcIU/mLRemisol ChemUrea nitrogen [Mass/Vol]16 mg/dL Normal5 - 21 mg/dLRemisol ChemUrea nitrogen/Creatinine [Mass ratio]20 mg/mg Rzlevn43 - 20Remisol ChemCMPon 63-48-2150Pjhiefx [Mass/Vol]4.3 g/dLNormal3.3-5.0 [facility] HospitalComment on above:Performed By: #### [id number] #### [facility] Laboratory [address], [place] [address]Jwinuhe/Globulin (S) [Mass conc ratio]1.8Rlppuw7.1-2.2FKettering Health Behavioral Medical CenterComment on above:Performed By: #### [id number] #### [facility] Laboratory [address], [place] [address]WUP [Catalytic activity/Vol]76 Int._Unit/PMfzaqx01-67UvctumWvumedicine Barnesville HospitalComment on above:Performed By: #### [id number] #### [facility] Laboratory [address], [place] [address]NHP No additional P-5'-P [Catalytic activity/Vol]13 Int._Unit/L Normal6-46[facility] HospitalComment on above:Performed By: #### [id number] #### [facility] Laboratory [address], [place] [address]Jrawz gap [Moles/Vol]10 mmol/LNormal6-16[facility] HospitalComment on above:Performed By: #### [id number] #### [facility] Laboratory [address], [place] [address]HRU [Catalytic activity/Vol]16 Int._Unit/LNormal5-43[facility] HospitalComment on above:Performed By: #### [id number] #### [facility] Laboratory [address], [place] [address]Irfobaitf [Mass/Vol]0.7 mg/dLNormal0.0-1.1FKettering Health Behavioral Medical CenterComment on above:Performed By: #### [id number] #### [facility] Laboratory [address], [place] [address]Ofzcggq [Mass/Vol]8.7 mg/dLLow8.9-11.1FKettering Health Behavioral Medical CenterComment on above:Performed By: #### [id number] #### [facility] Laboratory [address], [place] [address]Przgxvno [Moles/Vol]102 mmol/ZTxmvxy211-637ZjlkcaWvumedicine Barnesville HospitalComment on above:Performed By: #### [id number] #### [facility] Laboratory [address], [place] [address]WB0 [Moles/Vol]28 mmol/LTqwfks67-87ZkkislWvumedicine Barnesville Hospital Comment on above:Performed By: #### [id number] #### [facility] Laboratory [address], [place] [address]Nlkrgfqumx [Mass/Vol]0.8 mg/dLNormal0.5-1.3FKettering Health Behavioral Medical CenterComment on above:Performed By: #### [id number] #### [facility] Laboratory [address], [place] [address]Hwnnlwni (S) [Mass/Vol]2.6 g/dLNormal1.4-4.0[facility] HospitalComment on above:Performed By: #### [id number] #### [facility] Laboratory [address], [place] [address]Lktkpzz [Mass/Vol]86 mg/fYAxefzc41-461RlmdinWvumedicine Barnesville HospitalComment on above:Performed By: #### [id number] #### [facility] Laboratory [address], [place] [address]Njzepnupg [Moles/Vol]4.2 mmol/LNormal3.5-5.3FKettering Health Behavioral Medical CenterComment on above:Performed By: #### [id number] #### [facility] Laboratory [address], [place] [address]Aydfegw [Mass/Vol]6.9 g/dLNormal6.0-7.8[facility] HospitalComment on above:Performed By: #### [id number] #### [facility] Laboratory [address], [place] [address]Weicim [Moles/Vol]136 mmol/WEswxgs649-457DcstysWvumedicine Barnesville HospitalComment on above:Performed By: #### [id number] #### [facility] Laboratory [address], [place] [address]Xewm nitrogen [Mass/Vol]16 mg/dLNormal5-21[facility] HospitalComment on above:Performed By: #### [id number] #### [facility] Laboratory [address], [place] [address]Tuqv nitrogen/Creatinine [Mass ratio]20 No PytewGweosz14-11 [facility] HospitalComment on above:Performed By: #### [id number] #### [facility] Laboratory [address] [place] [address]Bfvqnv Medicine Office/Clinic Noteon [id number] [facility] NoteAd[facility]/Clinic Note [facility] Staff Eleonora is a 48 year old female presenting with wellness with fasting labs Health Maintenance: Colonoscopy: Mammo: 05/18/24 Pap: Last Labs: January 14 2023 History of Present Illness Patient presents today for wellness and fasting labs. She is UTD on her PAP and mammogram. She has no additional concerns today. Review of Systems PHQ Score Initial Depression Screen Score: 0 SCORE Constitutional: no fever, no chills, no sweats, no weakness Respiratory: no shortness of breath, no cough, no orthopnea, no wheezing Cardiovascular: no chest pain, no palpitations, no edema Additional ROS info: Except as noted in the above Review of Systems and in the History of Present Illness all other systems have been reviewed and are negative or noncontributory. Physical Exam Vitals & Measurements T: 36.5 ???C(Oral) HR: 62(Peripheral) RR: 18 BP: 118/78 SpO2: 100% HT: 68 in HT: 172.0 cm WT: 97.8 kg WT: 215.612 lb BMI: 33.06 General: alert, no acute distress Skin: warm, dry Head: no trauma, normocephalic Neck: Trachea midline, no adenopathy, no tenderness Eye: normal conjunctiva, sclera clear Cardiovascular: regular rate and rhythm, normal peripheral perfusion Respiratory: Lungs CTA, respirations non labored Extremities: no deformity, no trauma Neurological: oriented x 4, LOC appropriate for age speech normal Assessment/Plan 1. Health maintenance examination (Z00.00: Encounter for general adult medical examination without abnormal findings) PAP UTD Mammogram UTD Ordered: CBC w/ Auto Diff Comprehensive Metabolic Panel Est Preventative 40 to 64 years [address] Lipid Panel TSH With T4fr Reflex Follow-up No qualifying data available Problem List/Past Medical History Ongoing Annual physical exam Breast cancer screening Excessive dietary caloric intake Overweight Historical No qualifying data Procedure/Surgical History Back braces, device, section, Tonsillectomy. Medications Fioricet oral capsule, See Instructions Mirena 52 mg intrauteral device, 52 mg= 1 EA, IntraUteral, Once Zofran 4 mg Tab, 4 mg= 1 tab(s), Oral, q8hr, PRN Allergies No Known Allergies Social History Alcohol Current. Wine. 1-2 times per week., 05/24/2024 Substance Abuse - Denies Substance Abuse, 04/08/2022 Never., 05/24/2024 Tobacco - Denies Tobacco Use, 04/08/2022 Never (less than 100 in lifetime) Tobacco Use:., 05/25/2024 Family History Heart disease: Father. Hypertension: Mother. Hypothyroidism: Mother. Immunizations Vaccine Date Status influenza virus vaccine, inactivated 02/02/2024 Recorded influenza virus vaccine, inactivated 01/14/2023 Given influenza virus vaccine, inactivated 01/29/2022 Recorded influenza virus vaccine, inactivated 01/15/2022 Recorded SARS-CoV-2 (COVID-19) mRNA-1273 vaccine 03/03/2021 Recorded influenza virus vaccine, inactivated 01/07/2021 Recorded SARS-CoV-2 (COVID-19) mRNA-1273 vaccine 05/02/2020 Recorded SARS-CoV-2 (COVID-19) mRNA-1273 vaccine 04/01/2020 Recorded influenza virus vaccine, inactivated 02/07/2015 RecordedOhioHealth Mansfield HospitalComment on above:Result Comment: Electronically Signed By: GRACE DANIELS CNP.bello\Date and Time Signed: 05/25/24 11:23 ESTHEMATOLOGYOrdered By: SYSTEM SYSTEM on 58-83-2534Auozjfntq/100 WBC (Bld)0.2 %Normal0.0 - 2.0 %Remisol HemeBasophils/Leukocytes Auto (Bld) [Pure # fraction]0.0 E9/LNormal0.0 - 0.2 E9/LRemisol HemeEosinophils (Bld) [#/Vol]0.2 E9/LNormal0.0 - 0.5 E9/LRemisol HemeEosinophils/100 WBC (Bld)2.0 %Normal0.0 - 8.0 %Remisol HemeErythrocyte distribution width (RBC) [Ratio]12.8 %Piigen82.9 - 14.2 %Remisol HemeHematocrit (Bld) [Volume fraction]46.0 %Zuqzwp15.0 - 46.0 %Remisol HemeHemoglobin (Bld) [Mass/Vol]15.4 g/jZRffftf22.0 - 16.0 gm/dLRemisol HemeLymphocytes (Bld) [#/Vol] 2.8 E9/LNormal1.0 - 4.0 E9/LRemisol HemeLymphocytes/100 WBC (Bld)30.0 %Normal 14.0 - 50.0 %Remisol HemeMCH (RBC) [Entitic mass]31.8 wwGdfdfv64.0 - 34.0 pg Remisol HemeMCHC (RBC) [Mass/Vol]33.4 g/pGVoqceg48.4 - 36.0 gm/dLRemisol HemeMCV (RBC) [Entitic vol]95.4 gBHlumyc87.0 - 100.0 fLRemisol HemeMonocytes (Bld) [#/Vol]0.5 E9/LNormal0.2 - 1.0 E9/LRemisol HemeMonocytes/100 WBC (Bld)5.8 % Normal4.0 - 14.0 %Remisol HemeNeutrophils (Bld) [#/Vol]5.7 E9/LNormal2.0 - 7.5 E9/LRemisol HemeNeutrophils/100 WBC (Bld)62.0 %Zbxtpu42.0 - 75.0 %Remisol Heme Platelet mean volume (Bld) [Entitic vol]9.1 fLNormal6.4 - 10.8 fLRemisol Heme Platelets (Bld) [#/Vol]240.0 E9/CJonqea414.0 - 500.0 E9/LRemisol HemeRBC (Bld) [#/Vol]4.8 E12/LNormal4.3 - 5.9 E12/LRemisol HemeWBC corrected for nucl RBC Auto (Bld) [#/Vol]9.2 E9/LNormal4.0 - 11.0 E9/LRemisol HemeLipid Panelon 05-25-2024 Cholesterol [Mass/Vol]171 mg/tOZsmhbq232-788XgxzdwWvumedicine Barnesville HospitalComment on above:Performed By: #### [id number] #### [facility] Laboratory [address] [place], [place] [address]Bgagvluaruh in HDL [Mass/Vol]51 mg/dLInvalid Interpretation CodeWvumedicine Barnesville HospitalComment on above:Result Comment: '>= 60 LOW RISK' '<= 40 HIGH RISK'Performed By: #### [id number] #### [facility] Laboratory [address], [place] [address]Fdebvyfmsqb in LDL [Mass/Vol]113 mg/dLNormal<=129W[facility] Barnesville HospitalComment on above:Performed By: #### [id number] #### [facility] [address], [place] [address]Dkfyptgtgmf in VLDL [Mass/Vol]17 mg/dLNormal7-40[facility] HospitalComment on above:Performed By: #### [id number] #### [facility] Laboratory [address] [place] [address]Otejfyskeofu [Mass/Vol]86 mg/dLNormal<=149W[facility] Barnes[facility] HospitalComment on above:Performed By: #### [id number] #### [facility] Laboratory [address] [place] [address]OFP With T4fr Reflexon [id number] Qn2.96 m[IU]/LNormal 0.34-5.60W[facility] HospitalComment on above:Performed By: #### [id number] #### [facility] Laboratory [address], [place] [address]tODTdb 16-68-4444nQGR86 mL/min/1.73 t1Flnotz>=59Wvumedicine Barnesville HospitalComment on above:Performed By: #### [id number] #### [facility] [address], [place] [address]ZO Mamm Screen w/CAD if perf and 3D Bilon 76-44-7280PA Mamm Screen w/CAD if perf and 3D BilExam Date/Time: 05/18/2024 11:41 EST Reason for Exam: Z12. Report IMPRESSION: BIRADS 0 - INCOMPLETE, NEED ADDITIONAL IMAGING EVALUATION.RECALL NOW. DIAGNOSTIC RIGHT MAMMOGRAM WITH SPOT COMPRESSION VIEWS AND ULTRASOUND OF THE RIGHT BREAST ARE RECOMMENDED FOR FURTHER EVALUATION. CLINICAL HISTORY: Z12.31. COMPARISON: 04/19/2022. COMMENT: Routine views and tomosynthesis views of both breasts were obtained. The breasts are heterogeneously dense, which may obscure small masses. In the anterior right breast, posterior to the nipple, there is an approximately 1.5 cm mostly obscured nodular density, and further evaluation is recommended. The left breast unremarkable in appearance. No neoplastic calcifications are noted in either breast. The examination was reviewed with Computer Aided Detection. Breast Density: Yes Mammography is very important to your health. The current [employer] and National [employer] Network guidelines recommends annual mammography beginning at age 40. This facility utilizes a reminder system to ensure all patients receive reminder notifications at the appropriate time based on the recommendations of this exam. Board Certified Radiologists. Accredited by the ACR and FDA. Ordering Provider: REFERRAL, SELF FINAL REPORT Dictated: 05/22/2024 2:49 pm Jeff Piña M.D. Signed (Electronic Signature): 05/22/2024 2:49 pm Signed by: Jeff Piña M.D. Transcribed by: PAO Technologist: CARA Assessment: BI-RADS Category 0-Incomplete: Need additional imaging evaluation Recommendation: Additional projectionsOhioHealth Mansfield Hospital IGP,APTIMA HPV,AGE GDLNon 70-49-9962TLE GDLN ACOG TESTINGNote.[facility] Comment on above:TESTS RESULT FLAG UNITS REF RANGE LAB Clinician Provided Cytology Information Source.............Cervix;Endocervix No. of containers..01 ThinPrep Vial Age Algo ACOG Analilia... FLAG LEGEND: L-Low Normal,H-High Normal,LL-Alert Low,HH-Alert High <-Panic Low,>-Panic High,A-Abnormal,AA-Critical Abnormal Performed at: 01 =[address] [address] Peri Kirby MD, HPV APTIMANegativeNegativeNOMS HealthcareComment on above:This nucleic acid amplification test detects fourteen high- risk HPV types (16,18,31,33,35,39,45,51,52,56,58,59,66,68) without differentiation. Performed at: =[facility], [place] [id number] Assembler Piano: Peri Kirby MD, Phone: [phone] Performed at: [facility] [address] [facility], [place], [place] [id number] Assembler Piano: Dony Ladd MD, Phone: [phone] IGP, APTIMA HPV, RFX 16/18,45Note.NOMS HealthcareComment on above:TESTS RESULT FLAG UNITS REF RANGE LAB DIAGNOSIS: 02 NEGATIVE FOR INTRAEPITHELIAL LESION OR MALIGNANCY. Specimen adequacy: 02 Satisfactory for evaluation. Endocervical and/or squamous metaplastic cells (endocervical component) are present. Performed by: 02 Jesus Christian, [employer] (ASCP) . 02 Note: Note 03 The Pap smear is a screening test designed to aid in the detection of premalignant and malignant conditions of the uterine cervix. It is not a diagnostic procedure and should not be used as the sole means of detecting cervical cancer. Both false-positive and false-negative reports do occur. Test Methodology: Note 03 This liquid based ThinPrep(R) pap test was screened with the use of an image guided system. HPV Genotype Reflex Note 02 Criteria not met, HPV Genotype not performed. FLAG LEGEND: L-Low Normal,H-High Normal,LL-Alert Low,HH-Alert High <-Panic Low,>-Panic High,A-Abnormal,AA-Critical Abnormal Performed at: 02 [facility] [address] [place] [address] Dony Ladd MD, 03 WB [facility] [address] [address] Peri Kirby MD, BRUSH-SPATULA CERVIX ENDOCERVIX [facility] HOSPITALNCNOSSM [facility] Health CenterI Insertionon [id number] BoresKINGS 02/29/2024 10:38 AM IUD Insertion Performed by: Maciej Gusman DO Authorized by: Maciej Gusamn DO Procedure: IUD insertion Consent obtained by patient, parent, or legal power of employee benefits attorney - including discussion of procedure risks and benefits, patient questions answered, and patient education provided: yes risk: reasonably certain the patient is not Immediately prior to procedure a time out was called: no Pelvic exam performed: no Speculum placed in vagina: yes Cervix cleaned and prepped: yes Tenaculum/Allis/Ring Forceps applied to cervix: yes Anesthesia used: no IUD inserted without complications: yes OSM: 52 mg Levonorgestrel 20 MCG/DAY Patient tolerated procedure well: yes Inserted with ultrasound guidance: no Intended removal date: 5 years Insertion comments: IUD Insertion: Patient presents today for an IUD Insertion. Patient is having a Mirena placed and written consent was obtained. Patient was placed in the dorsal lithotomy position with feet in stirrups. A sterile speculum ws placed into the vagina and the cervix was visualized. Cervix was cleansed with betadine and the anterior lip was grasped with ring forceps. Uterus was then gently sounded. New IUD device was gently advanced through the endocervix, toward te uterine fundus. The IUD was then deployed as device was gently removed from the uterus. The IUD strings were cut to the length from external os. All instruments were removed from the vagina. Post-procedure instructions given. All of patients questions were answered and she expressed understanding. Advised to call interim with any questions or concerns. Follow Up: Patient is to return to the office in 4 weeks for a string check.[facility] HospitalIUD Removalon [id number] Bores, KINGS 02/29/2024 10:38 AM IUD Removal Date/Time: 02/28/2024 4:05 PM Performed by: Maciej Gusman DO Authorized by: Maciej Gusman DO Consent: Consent obtained: Written Consent given by: Patient Procedure risks and benefits discussed: yes Patient questions answered: yes Patient agrees, verbalizes understanding, and wants to proceed: yes Educational handouts given: yes Instructions and paperwork completed: yes [place] protocol: Patient states understanding of procedure being performed: yes Relevant documents present and verified: yes Test results available and properly labeled: yes Imaging studies available: yes Required blood products, implants, devices, and special equipment available: yes Site marked: yes Procedure: Removed with no complications: yes Removal due to mechanical complications of IUD: no Removal due to infection and inflammatory reaction: no Comments: IUD Removal: Patient presents today for removal of IUD. Written consent was obtained and patient was placed in dorsal lithotomy position with feet in stirrups. A sterile speculum was inserted into the vagina and the cervix was visualized. The IUD strings were grasped gently with forceps and the IUD was removed in its entirety without difficulty. The IUD was shown to the patient then properly discarded. [facility] Medicine Office/Clinic Noteon 09-30-2023 Family Medicine Office/Clinic NoteFacape cod and [facility] Medicine Office/Clinic Note HPI Staff Eleonora is a 48 year old female presenting for one month follow up weight started adipex at [facility] Weight management Sleeping well:Yes, 6-8 hours Chest pain:No Tremors:No Headaches:No Heart fluttering:No Blurred Vision:No Starting Weight: 204.6 Weight last visit: 204.6 Weight this visit: 202.4 Onset: Today Right upper eye lid swelled and red Pt c/o yeast infection and would like refill on Diflucan History of Present Illness Patient reports today in f/u for weight management. She was started on Adipex at her last visit. She has lost 2.2 lbs since her last visit. She reports she has been eating less food and has been increasing her exercise. She reports no adverse effects of the medication. She would like to have the medication refilled at this appointment. Patient states she has a vaginal yeast infection. She states she went swimming twice over the weekend and now she has itching and burning. She states this is what normally happens when she gets into a swimming pool. She reports she got up this morning and her right eye was hurting. She states she used some erythromycin ointment in the right eye that was her daughters. She states the eye feels like there might lavinia stye starting. Review of Systems PHQ Score Initial Depression Screen Score: 0 SCORE Constitutional: no fever, no chills, no sweats, no weakness Skin: no Jaundice, no rash, no lesions, nopetechiae ENMT: no ear pain, no sore throat, no congestion, no hoarseness Respiratory: no shortness of breath, no cough, no orthopnea, no wheezing Cardiovascular: no chest pain, no palpitations, no edema Musculoskeletal: no back pain, no trauma Neurologic: no headache, no dizziness, no numbness, no weakness Psychiatric: no sleeping problems, no irritability, no mood swings/depression. Additional ROS info: Except as noted in the above Review of Systems and in the History of Present Illness all other systems have been reviewed and are negative or noncontributory. Physical Exam Vitals & Measurements HR: 94(Peripheral) RR: 18 BP: 128/78 SpO2: 98% HT: 68 in HT: 172.0 cm WT: 92 kg WT: 202.4 lb BMI: 31.1 General: alert, no acute distress Skin: warm, dry Head: no trauma, normocephalic Neck: Trachea midline, no adenopathy, no tenderness Eye: normal conjunctiva, sclera clear, right upper eyelid reddened & edematous Cardiovascular: regular rate and rhythm, normal peripheral perfusion Respiratory: Lungs CTA, respirations non labored Neurological: oriented x 4, LOC appropriate for age speech normal Psychiatric: cooperative, affect appropriate for age, normal judgement, normal psychiatric thoughts. Assessment/Plan 1. Vaginal yeast infection (B37.31: Acute candidiasis of vulva and vagina) Ordered: fluconazole, 150 mg = 1 tab(s), Oral, Once, Take one tablet now; may repeat in 72 hours if no improvement, # 2 tab(s), Refills(s) 0, Pharmacy: [facility], 172, cm, 09/02/23 9:39:00 EDT, Height/Length Dosing, 93, kg, 09/02/23 9:39:00 EDT, Weight Dosing 2. Blepharitis (H01.009: Unspecified blepharitis unspecified eye, unspecified eyelid) Ordered: bacitracin/neomycin/polymyxin B ophthalmic, 0.25 in, OPTH, QID for 5 day(s), 3.5 gm, Refill(s) 0, [facility], 172, cm, 09/02/23 9:39:00 EDT, Height/Length Dosing, 93, kg, 09/02/23 9:39:00 EDT, Weight Dosing 3. Excessive dietary caloric intake (R63.2: Polyphagia) BMI 31.1 today in the office OARRS reviewed today and found to be appropriate Continue phentermine 37.5 mg take one tablet po in the AM Encourage daily exercise & portion control f/u in 4 weeks Orders: phentermine, 37.5 mg = 1 tab(s), Oral, Daily, # 30 tab(s), Refills(s) 0, Pharmacy: [facility], 172, cm, 09/30/23 9:41:00 EDT, Height/Length Dosing, 92, kg, 09/30/23 9:41:00 EDT, Weight Dosing Follow-up With When Contact Information GRACE DANIELS CNP, FAM Within [address] [place] [phone] Business (1) Additional Instructions: Weight management Patient Education Blepharitis, Lges-xa-Oann Vaginal Yeast Infection, Adult Problem List/Past Medical History Ongoing Annual physical exam Breast cancer screening Excessive dietary caloric intake Overweight Historical No qualifying data Procedure/Surgical History Back braces, device, section, Tonsillectomy. Medications bacitracin/neomycin/polymyxin B Opth Oint, 0.25 in, OPTH, QID Fioricet oral capsule, See Instructions fluconazole 150 mg Tab, 150 mg= 1 tab(s), Oral, Once fluconazole 150 mg Tab, 300 mg= 2 tab(s), Oral, q7day, 1 refills, Still taking, not as prescribed: prn Mirena 52 mg intrauteral device, 52 mg= 1 EA, IntraUteral, Once phentermine 37.5 mg Tab, 37.5 mg= 1 tab(s), Oral, Daily Allergies No Known Allergies Social History Alcohol Current, Wine, 1-2 times per week, 04/08/2022 Substance Abuse - Denies Substance Abuse, (more content not included)... [facility] HospitalComment on above:Result Comment: Electronically Signed By: GRACE DANIELS CNP\.br\Date and Time Signed: 09/30/23 11:27 EDT Family Medicine Office/Clinic Noteon [id number] Medicine Office/Clinic NoteChief Complaint weight loss HPI Staff Patient presents for weight loss. Weight management Today's Weight: 93.0kg/205 lb Today's BMI: 31.44 History of Present Illness Patient of Dr. Whitt presents today for weight management. She reports she has been having difficulty losing weight since the beginning of this year. She states she would like to lose 20-25 pounds. Her goal weight is 180 lbs. 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 She states she weighed close to 110 lbs when she graduated from . She states she used Adipex to help with weight loss during COV and she lost 30 pounds. She would like to try Adipex again to help with weight lose. Review of Systems PHQ Score Initial Depression Screen Score: 0 SCORE Constitutional: no fever, no chills, no sweats, no weakness Respiratory: no shortness of breath, no cough, no orthopnea, no wheezing Cardiovascular: no chest pain, no palpitations, no edema Additional ROS info: Except as noted in the above Review of Systems and in the History of Present Illness all other systems have been reviewed and are negative or noncontributory. Physical Exam Vitals & Measurements HR: 83(Peripheral) BP: 120/70 SpO2: 98% HT: 67 in HT: 169 cm WT: 93 kg WT: 204.6 lb BMI: 32.56 General: alert, no acute distress Cardiovascular: regular rate and rhythm, normal peripheral perfusion Respiratory: Lungs CTA, respirations non labored Extremities: no deformity, no trauma Neurological: oriented x 4, LOC appropriate for age speech normal Assessment/Plan 1. Overweight (E66.3: Overweight) BMI 31.44 today in the office Discuss medication for weight loss OARRS reviewed today and found to be appropriate Start phentermine 37.5 mg take one tablet po in the AM Encourage daily exercise & portion control Explained to patient medication can be prescribed monthly when patient shows progress and a 10 % weight reduction in 3 months f/u in 4 weeks Ordered: phentermine, 37.5 mg = 1 tab(s), Oral, Daily, # 30 tab(s), Refills(s) 0, Pharmacy: [facility], 172, cm, 09/02/23 9:39:00 EDT, Height/Length Dosing, 93, kg, 09/02/23 9:39:00 EDT, Weight Dosing 2. BMI 31.0-31.9,adult (Z68.31: Body mass index [BMI] 31.0-31.9, adult) BMI 31.44 today in the office Discuss medication for weight loss OARRS reviewed today and found to be appropriate Start phentermine 37.5 mg take one tablet po in the AM Encourage daily exercise & portion control Explained to patient medication can be prescribed monthly when patient shows progress and a 10 % weight reduction in 3 months f/u in 4 weeks Ordered: phentermine, 37.5 mg = 1 tab(s), Oral, Daily, # 30 tab(s), Refills(s) 0, Pharmacy: [facility], 172, cm, 09/02/23 9:39:00 EDT, Height/Length Dosing, 93, kg, 09/02/23 9:39:00 EDT, Weight Dosing Orders: azithromycin, See Instructions, Take 2 Tablets by mouth day 1 and then 1 tablet by mouth for the next 4 days., # 6 tab(s), Refills(s) 0, Pharmacy: [facility], 172, cm, 02/03/23 16:04:00 EDT, Height/Length Dosing, 85.2, kg, 02/03/23 16:04:00 EDT, Xavi... ondansetron, 4 mg = 1 tab(s), Oral, q8hr, # 10 tab(s), Refills(s) 0, Pharmacy: [facility], 172, cm, 02/03/23 16:04:00 EDT, Height/Length Dosing, 85.2, kg, 02/03/23 16:04:00 EDT, Weight Dosing Follow-up With When Contact Information JEREMIAH PAIGE, JOAQUIN WILD Within [address] [place], [place] [phone] Business (1) Additional Instructions: Patient Education Preventing Health Risks of Being Overweight Problem List/Past Medical History Ongoing Annual physical exam Breast cancer screening Excessive dietary caloric intake Overweight Historical No qualifying data Procedure/Surgical History Back braces, device, section, Tonsillectomy. Medications Fioricet oral capsule, See Instructions fluconazole 150 mg Tab, 300 mg= 2 tab(s), Oral, q7day, 1 refills, Still taking, not as prescribed: prn Mirena 52 mg intrauteral device, 52 mg= 1 EA, IntraUteral, Once phentermine 37.5 mg Tab, 37.5 mg= 1 tab(s), Oral, Daily Allergies No Known Allergies Social History Alcohol Current, Wine, 1-2 times per week, 04/08/2022 Substance Abuse - Denies Substance Abuse, 04/08/2022 Tobacco - Denies Tobacco Use, 04/08/2022 Never (less than 100 in lifetime) Tobacco Use:. Never Smokeless Tobacco Use:. Household tobacco concerns: No., 09/02/2023 Family History Heart disease: Father. Hypertension: Mother. Hypothyroidism: Mother. Immunizations Vaccine Date Status influenza virus vaccine, inactivated 01/14/2023 Given influenza virus vaccine, inactivated 01/29/2022 Recorded influenza virus vaccine, inactivated 01/15/2022 Recorded SARS-CoV-2 (COVID-19) mRNA-1273 vaccine 03/03/2021 Recorded influenza virus vaccine, inactivated 01/07/2021 Recorded SARS-CoV-2 (COVID-19) mRNA-1273 vaccine 05/02/2020 Recorded SARS-CoV-2 (COVID-19) mRNA-1273 vaccine (more content not included)... [facility] HospitalComment on above:Result Comment: Electronically Signed By: GRACE DANIELS CNP\Date and Time Signed: 09/02/23 10:26 EDT Patient Educationon [id number] EducationEndocrinology Preventing Health Risks of Being Overweight Maintaining a healthy body weight is an important part of your overall health. Your healthy body weight depends on your age, gender, and height. Being overweight puts you at risk for many health problems. You can make changes to your diet and lifestyle to prevent these risks. Consider working with a health care provider or a dietitian to make these changes. How can being overweight affect me? Being overweight can affect you for your entire life. You may develop joint or bone problems that make it painful or difficult for you to play sports or do activities you enjoy. Being overweight alsoputs stress on your heart and lungs and can lead to medical problems such as: ? Heart disease. ? Diabetes. ? Some types of cancer. ? Stroke. Eating healthy and being active helps you lose weight and prevents health problems caused by being overweight. Making these changes can also help you manage stress, feel better mentally, and connect with friends and family. What can increase my risk? In addition to certain diet and lifestyle choices, some other factors that may make you more likelyto be overweight include: ? Having a family history of obesity. ? Living in an area with limited access to: ? [place], recreation centers, or sidewalks. ? Healthy food choices, such as grocery stores and farmers' markets. What actions can I take to prevent health risks of being overweight? Nutrition ? Eat only as much as your body needs. In most cases, this is about 2,000 calories a day, but the amount varies depending on your height, gender, and activity level. Ask your health care provider howmany calories you should have each day. Eating more than your body needs on a regular basis can cause you to become overweight or obese. ? Eat slowly, and stop eating when you feel full. ? Choose healthy foods, including: ? Fruits and vegetables. ? Lean meats. ? Low-fat dairy products. ? High-fiber foods, such as whole grains and beans. ? Healthy snacks like vegetable sticks, a piece of fruit, or a small amount of yogurt or cheese. ? Avoid foods and drinks that are high in sugar, salt (sodium), saturated fat, or trans fat. This includes: ? Many desserts such as candy, cookies, and ice cream. ? Soda. ? Fried foods. ? Processed, precooked, or cured meat, such as hot dogs, sausages, or meat loaves. ? Prepackaged snack foods. Lifestyle ? Exercise for at least 150 minutes a week to prevent weight gain, or as often as recommended by your health care provider. Do moderate-intensity exercise, such as brisk walking. ? Spread it out by exercising for 30 minutes 5 days a week, or in short 10- minute bursts several times a day. ? Find other ways to stay active and burn calories, such as yard work or a hobby that involves physical activity. ? Get at least 8 hours of sleep each night. When you are well rested, you are more likely to be active and make healthy choices during the day. To sleep better: ? Try to go to bed and wake up at about the same time every day. ? Keep your bedroom dark, quiet, and cool. ? Make sure that your bed is comfortable. ? Avoid stimulating activities, such as watching television or exercising, for at least an hour before bedtime. Where to find support You can get support for preventing health risks of being overweight from: ? Your health care provider or a dietitian. They can provide guidance about healthy eating and healthy lifestyle choices. ? Weight loss support groups, online or in-person. Where to find more information ? MyPlate: www.choosemyplate.gov ? This an online tool that provides personalized recommendations about foods to eat each day. ? The Centers for Disease Control and Prevention: www.cdc.gov/healthyweight ? This resource gives tips for managing weight and having an active lifestyle. Summary ? Eating healthy and being active helps you lose weight and prevents health problems caused by being overweight. ? Being overweight puts stress on your heart and lungs and can lead to medical problems such as diabetes, heart disease, some types of cancer, and stroke. This information is not intended to replace advice given to you by your health care provider. Make sure you discuss any questions you have with your health care provider. Document Revised: 10/16/2021 Document Reviewed: 10/16/2021 [employer] Patient Education ? 2022 [employer].[facility] [place] [id number] [facility] HospitalNurse Consultation Noteon [id number] Consultation NotePhysical Exam pt had Kenalog injection to Right GM tolerated well Assessment/Plan Left ear pain (H92.02: Otalgia, left ear) Medications azithromycin 250 mg Tab, See Instructions Fioricet oral capsule, See Instructions fluconazole 150 mg Tab, 300 mg= 2 tab(s), Oral, q7day, 1 refills Mirena 52 mg intrauteral device, 52 mg= 1 EA, IntraUteral, Once ondansetron 4 mg Tab, 4 mg= 1 tab(s), Oral, q8hr phentermine 37.5 mg Tab, 37.5 mg= 1 tab(s), Oral, Daily, 1 refills Allergies No Known Allergies Immunizations Vaccine Date Status influenza virus vaccine, inactivated 01/14/2023 Given influenza virus vaccine, inactivated 01/29/2022 Recorded influenza virus vaccine, inactivated 01/15/2022 Recorded SARS-CoV-2 (COVID-19) mRNA-1273 vaccine 03/03/2021 Recorded influenza virus vaccine, inactivated 01/07/2021 Recorded SARS-CoV-2 (COVID-19) mRNA-1273 vaccine 05/02/2020 Recorded SARS-CoV-2 (COVID-19) mRNA-1273 vaccine 04/01/2020 Recorded influenza virus vaccine, inactivated 02/07/2015 RecordedNormUniversity Hospitals Beachwood Medical CenterCHEMISTRYOrdered By: SYSTEM SYSTEM on [id number] [Mass/Vol] 4.3 g/dLNormal3.3 - 5.0 gm/dLFTMC RemisolAlbumin/Globulin [Mass ratio]2.7 {ratio}High1.1 - 2.2[facility] RemisolALP [Catalytic activity/Vol]64 [iU]/qCvvdln12 - 98 Int._Unit/LFTMC RemisolALT No additional P-5'-P [Catalytic activity/Vol]15 [iU]/dNormal6 - 46 Int._Unit/LFTMC RemisolAnion gap [Moles/Vol]12 mmol/LNormal6 - 16 mEq/LFTMC RemisolAST [Catalytic activity/Vol]18 [iU]/dNormal5 - 43 Int._Unit/LFTMC RemisolBilirubin [Mass/Vol]1.1 mg/dLNormal0.0 - 1.1 mg/dLFT RemisolCalcium [Mass/Vol]9.5 mg/dLNormal8.9 - 11.1 mg/dLMER[facility] [place] RemisolChloride [Moles/Vol]109 mmol/GIftmts661 - 111 mmol/LFTMC RemisolCholesterol [Mass/Vol]164 mg/oJUzgmjs945 - 200 mg/dLFT RemisolCholesterol in HDL [Mass/Vol]44 mg/dL Invalid Interpretation CodeFT RemisolComment on above:Interpretive Data: HDL > or equal to 60 mg/dL: Low cardiovascular risk HDL < 40 mg/dL : High cardiovascular riskCholesterol in LDL [Mass/Vol]97 mg/dL Normal<=129mg/dLMER[facility] [place] RemisolCholesterol in VLDL [Mass/Vol]13 mg/dLNormal7 - 40 mg/dLMER[facility] [place] RemisolCO2 [Moles/Vol]27 mmol/DZsyxph97 - 31 mmol/LFTMC Remisol Creatinine [Mass/Vol]0.9 mg/dLNormal0.5 - 1.3 mg/dLMER[facility] [place] RemisolGFR/1.73 sq M.predicted among non-blacks MDRD (S/P/Bld) [Vol rate/Area]80 mL/min/1.73 m2 Normal>=59mL/min/1.73 m2[facility] Chem SComment on above:Interpretive Data: Chronic kidney disease could be indicated at eGFR's of less than 60 mL/min/1.73m2. Kidney failure is indicated at less than 15 mL/min/1.73m2.Globulin (S) [Mass/Vol]1.6 g/dLNormal1.4 - 4.0 gm/dLFT RemisolGlucose [Mass/Vol]87 mg/dL Lbzmna18 - 199 mg/dLFT RemisolComment on above:Interpretive Data: If this glucose result represents a fasting glucose, interpretation should referto the following reference range: 55-99 mg/dLPotassium [Moles/Vol]4.8 mmol/LNormal3.5 - 5.3 mmol/LFTMC RemisolProtein [Mass/Vol]5.9 g/dLLow6.0 - 7.8 gm/dLFT Remisol Sodium [Moles/Vol]143 mmol/GQjdrgk698 - 145 mmol/LFTMC RemisolTriglyceride [Mass/Vol]67 mg/dLNormal<=149mg/dLFT RemisolUrea nitrogen [Mass/Vol]17 mg/dL Normal5 - 21 mg/dLFT RemisolUrea nitrogen/Creatinine [Mass ratio]19 mg/mg Nhcavf64 - 20FT RemisolHEMATOLOGYOrdered By: SYSTEM SYSTEM on 01-14-2023 Basophils/100 WBC (Bld)0.3 %Normal0.0 - 2.0 %[facility] HemeAutoSSBasophils/Leukocytes Auto (Bld) [Pure # fraction]0.0 E9/LNormal0.0 - 0.2 E9/LFTMC HemeAutoSS Eosinophils/100 WBC (Bld)1.5 %Normal0.0 - 8.0 %[facility] HemeAutoSS Eosinophils/Leukocytes Auto (Bld) [Pure # fraction]0.1 E9/LNormal0.0 - 0.5 E9/L [facility] HemeAutoSSLymphocytes/100 WBC (Bld)31.8 %Uvloxr84.0 - 50.0 %[facility] HemeAutoSS Lymphocytes/Leukocytes Auto (Bld) [Pure # fraction]1.9 E9/LNormal1.0 - 4.0 E9/L [facility] HemeAutoSSMonocytes/100 WBC (Bld)7.2 %Normal4.0 - 14.0 %[facility] HemeAutoSS Monocytes/Leukocytes Auto (Bld) [Pure # fraction]0.4 E9/LNormal0.2 - 1.0 E9/L [facility] HemeAutoSSNeutrophils/100 WBC (Bld)59.2 %Weohiw26.0 - 75.0 %[facility] HemeAutoSS Neutrophils/Leukocytes Auto (Bld) [Pure # fraction]3.6 E9/LNormal2.0 - 7.5 E9/L [facility] HemeAutoSSHEMATOLOGYOrdered By: Sridevi Galaviz on 50-91-3733Tdoprqnspnf distribution width (RBC) [Ratio]13.0 %Cvemiy70.9 - 14.2 %[facility] HemeAutoSS Hematocrit (Bld) [Volume fraction]45.7 %Fbmczi89.0 - 46.0 %[facility] HemeAutoSS Hemoglobin (Bld) [Mass/Vol]15.0 g/bGZxfyqd52.0 - 16.0 gm/dLFTMC HemeAutoSSMCH (RBC) [Entitic mass]31.0 qbHmmipo77.0 - 34.0 pgFTMC HemeAutoSSMCHC (RBC) [Mass/Vol]32.9 g/oVIkmkju59.4 - 36.0 gm/dLFTMC HemeAutoSSMCV (RBC) [Entitic vol] 94.3 uXOzrmbd91.0 - 100.0 fLFTMC HemeAutoSSPlatelet mean volume (Bld) [Entitic vol]8.1 fLNormal6.4 - 10.8 fLFTMC HemeAutoSSPlatelets (Bld) [#/Vol]203.0 E9/L Ysxqpd981.0 - 500.0 E9/LFTMC HemeAutoSSRBC (Bld) [#/Vol]4.8 E12/LNormal4.3 - 5.9 E12/LFTMC HemeAutoSSWBC corrected for nucl RBC Auto (Bld) [#/Vol]6.1 E9/LNormal 4.0 - 11.0 E9/LFTMC HemeAutoSSMG MAMM SCREEN 3D PALOMO CADon [id number] MAMM SCREEN 3D PALOMO CADPatient: ELEONORA DIAZ. Exam Date: 04/19/2022 : 1975 Gender:F Ordering : DR MACIEJ GUSMAN . Admission #: [id number] Family : DR. ALISON WHITT . Order #: [id number] CLICK HERE TO VIEW EXAM RADIOLOGY REPORT PROCEDURE: MAMMOGRAM SCREENING 3D BILATERAL CAD COMPARISON: MG MAMM SCREEN PALOMO W CAD, 03/06/2019. MG MAMM SCREEN 3D PALOMO CAD, 09/02/2020. INDICATIONS: Screening mammography Calculator Name NCI Breast Cancer Risk Assessment Tool 5 Year Breast Cancer Risk 1.10% Lifetime Breast Cancer Risk 13.00% Personal Breast Cancer No Personal Ovarian Cancer No Treatments None Family Cancers Aunt-maternal with breast cancer at age 50; Aunt-maternal with breast cancer at age 50. LOCATION: [facility] BREAST COMPOSITION: Extremely dense, which lowers the sensitivity of mammography. FINDINGS: DIAGNOSTIC CATEGORY 2--BENIGN FINDING. NO CHANGE FROM COMPARISON. Scattered benign-appearing lymph nodes are present. Scattered benign-appearing calcifications are present. RIGHT BREAST: No significant suspicious finding. LEFT BREAST: No significant suspicious finding. RECOMMENDATIONS: ROUTINE MAMMOGRAM AND CLINICAL EVALUATION IN 12 MONTHS. PLEASE NOTE: A NORMAL MAMMOGRAM DOES NOT EXCLUDE THE POSSIBILITY OF BREAST CANCER. A CLINICALLY SUSPICIOUS PALPABLE LUMP SHOULD BE BIOPSIED. Dictated by: Lyn Montez MD on 04/20/2022 at 10:09 Approved by: Lyn Montez MD on 04/20/2022 at 10:13[facility] HospitalUS PELVIS AND TRANSVAGon [id number] PELVIS AND TRANSVAGEXAMINATION: US PELVIS AND TRANSVAG HISTORY: Pelvic and perineal pain COMPARISON: No relevant comparison available. FINDINGS: The uterus is normal in size, contour and myometrial echotexture. The uterus is anteverted, retroflexed. The uterus measures 8.7 x 4.0 x 5.0 cm. No focal myometrial mass. Areas of anechoic echogenicity in the cervix, nabothian cysts are favored Linear hyperechogenicity with acoustic ringdown artifact within the endometrial cavity consistent with a normally positioned IUD. This limits evaluation endometrium which grossly measures 0.7 cm. The right ovary measures 2.9 x 2.2 x 3.0 cm. Area of anechoic echogenicity measuring 2.4 x 2.1 x 1.8 cm, simple cyst. Normal color and Doppler flow. Normal resistive index of 0.5. The left ovary is normal in appearance measuring 1.2 x 1.3 x 0.8 cm. Normal follicles. Normal color and Doppler flow. Normal resistive index of 0.6. No free fluid. IMPRESSION: 2.4 cm right ovarian simple cyst Normally positioned IUD Electronically authenticated by: LYN MONTEZ Date: 2021-07-09 15:46[facility] HospitalPA ACOG PANEL 2: 30 to 65on 06-18-2021..NormalThe [facility] on above:Result Comment: Performed at: WBPerformed By: #### [id number] #### [facility] [address] [place] [address] Dr. Kaity SutherlandAge Gdln ACOG Qahlevt38-83DcovmpFfxBarnesville HospitalComment on above:Performed By: #### [id number] #### [facility] [address] [place] [address] Dr. Kaity SutherlandDIAGNOSIS:CommentGenesis Hospital on above: Result Comment: NEGATIVE FOR INTRAEPITHELIAL LESION OR MALIGNANCY. Performed at: WBPerformed By: #### [id number] #### [facility] [address] [place] [address] Dr. Kaity SutherlandHPV AptimaNegativeNormalNegativeUniversity Hospitals Samaritan Medical CenterComharper university hospital on above:Result Comment: This nucleic acid amplification test detects fourteen high-risk HPV types (16,18,31,33,35,39,45,51,52,56,58,59,66,68) without differentiation. Performed at: =GPerformed By: #### [id number] #### [facility] [address] [place] [address] Dr. Kaity SutherlandMethodology:CommentGenesis Hospital on above: Result Comment: This liquid based ThinPrep(R) pap test was screened with the use of an image guided system. Performed at: WBPerformed By: #### [id number] #### [facility] [address] [place] [address] Dr. Kaity SutherlandNote:CommentGenesis Hospital on above:Result Comment: The Pap smear is a screening test designed to aid in the detection of premalignant and malignant conditions of the uterine cervix. It is not a diagnostic procedure and should not be used as the sole means of detecting cervical cancer. Both false-positive and false-negative reports do occur. . Performed at: WBPerformed By: #### [id number] #### [facility] [address] [address] [address] Kaity SutherlandPerformed by:CommentGenesis Hospital on above: Result Comment: Shira Pino, [employer] Performed at: WBPerformed By: #### [id number] #### [facility] [address] [address] [address] Kaity SutherlandSpecimen adequacy:CommentGenesis Hospital on above:Result Comment: Satisfactory for evaluation. Endocervical and/or squamous metaplastic cells (endocervical component) are present. Performed at: WBPerformed By: #### [id number] #### [facility] [address] [address] [address] Kaity SutherlandCBC with Diffon [id number]. Basophil0.00 k/uLNormal0.0-0.2 [facility] on above:Performed By: #### ASHLEY MONO, CDP #### [facility] [address] [place] [address] Assembler Piano: Jamie Driscoll.Neutrophil (Seg)8.00 k/uLHigh2.5-7.0[facility] on above:Performed By: #### DIFIsaias MONO, CDP #### [facility] [address] [place] [address] Assembler Piano: Mercedes Driscoll Diff PerformedYESNoRegency Hospital ToledoComharper university hospital on above:Performed By: #### DIFE MONO, CDP #### [facility] [address] [place] [address] Assembler Piano: Jose Farfan MDBasophils/100 WBC (Bld)0 %Normal0-2MAultman Hospital on above:Performed By: #### DIFIsaias MONO, CDP #### [facility] [address] [place] [address] Assembler Piano: FAHAD Driscollosinophils (Bld) [#/Vol]0.10 10*3/uLNormal 0.0-0.4MerAuburn Community HospitalComment on above:Performed By: #### DIFE, MONO, CDP #### [facility] [address] [place] [address] Assembler Piano: Jose Farfan MDEosinophils/100 WBC (Bld)1 %Normal0-5A[facility] Glenbeigh HospitalComment on above:Performed By: #### DIFE, MONO, CDP #### [facility] [address] [place] [address] Assembler Piano: Jose Farfan MDErythrocyte distribution width (RBC) [Ratio]13.5 %Bybepb00.1-15.2MercSelect Medical Specialty Hospital - Trumbull HospitalComment on above:Performed By: #### DIFE, MONO, CDP #### [facility] [address], [place] [address] Assembler Piano: Jose Farfan MDHematocrit (Bld) [Volume fraction]43.4 %Normal 36-46MerAuburn Community HospitalComment on above:Performed By: #### DIFE, MONO, CDP #### [facility] [address] [place] [address] Assembler Piano: Jose Farfan MDHemoglobin (Bld) [Mass/Vol]14.5 g/dLNormal 12.0-16.0[facility] - DublinComment on above:Performed By: #### DIFE, MONO, CDP #### [facility] [address] [place] [address] Assembler Piano: Jose Farfan MDLymphocytes (Bld) [#/Vol]1.60 10*3/uLNormal 1.0-4.8MerAuburn Community HospitalComment on above:Performed By: #### DIFE, MONO, CDP #### [facility] [address] [place] [address] Assembler Piano: King Driscollmphocytes/100 WBC (Bld)15 %Huwsik75-43FpusuSelect Medical Ohiohealth Rehabilitation Hospital - DublinComment on above:Performed By: #### DIFE, MONO, CDP #### [facility] [address] [place] [address] Assembler Piano: TL DriscollCH (RBC) [Entitic mass]30.5 ipZviizd05-05IsrqgSelect Medical Ohiohealth Rehabilitation Hospital - DublinComment on above:Performed By: #### DIFE, MONO, CDP #### [facility] [address] [place] [address] Assembler Piano: ALYSA DriscollC (RBC) [Mass/Vol]33.4 g/rAHskyov96-19AtzefSelect Medical Ohiohealth Rehabilitation Hospital - DublinComment on above:Performed By: #### DIFE, MONO, CDP #### [facility] [address] [place] [address] Assembler Piano: TL DriscollCV (RBC) [Entitic vol]91.3 oGKlvgoo12-924FywqaSelect Medical Ohiohealth Rehabilitation Hospital - DublinComment on above:Performed By: #### DIFE, MONO, CDP #### [facility] [address] [place] [address] Assembler Piano: TL Driscollonocytes (Bld) [#/Vol]0.60 10*3/uLNormal0.0-1.0 [facility] on above:Performed By: #### DIFE, MONO, CDP #### [facility] [address] [place] [address] Assembler Piano: TL Driscollonocytes/100 WBC (Bld)6 %Normal4-8[facility] on above:Performed By: #### DIFE, MONO, CDP #### [facility] [address] [place] [address] Assembler Piano: Eduardo Driscoll (Seg)78 %Hqga37-22FbrzxSelect Medical Ohiohealth Rehabilitation Hospital - DublinComment on above:Performed By: #### DIFIsaias, MONO, CDP #### [facility] [address] [place] [address] Assembler Piano: Johnny Driscoll (Bld) [#/Vol]206 10*3/bANkfhdl447-857 [facility] - DublinComment on above:Performed By: #### DIFIsaias, MONO, CDP #### [facility] [address] [place] [address] Assembler Piano: SIOMARA Driscoll (Bld) [#/Vol]4.75 10*6/uLNormal4.0-5.2MMagruder Memorial HospitalComment on above:Performed By: #### DIFIsaias, MONO, CDP #### [facility] [address] [place] [address] Assembler Piano: LISE Driscoll (Bld) [#/Vol]10.3 10*3/uLNormal3.5-11.0[facility] - DublinComment on above:Performed By: #### DIFIsaias, MONO, CDP #### [facility] [address] [place] [address] Assembler Piano: Jamie Driscoll.Imm.GranulocyteNOT REPORTEDNormal0.00-0.30 [facility] on above:Performed By: #### DIFE, MONO, CDP #### [facility] [address] [place] [address] Assembler Piano: Rosalva Driscollmature granulocytes (Bld) [#/Vol]NOT REPORTED Yjouub5MgjdcWexner Medical Center on above:Performed By: #### DIFE, MONO, CDP #### [facility] [address] [place] [address] Assembler Piano: MARIA LUISA Driscoll AutomatedNOT REPORTEDNormalMercy Katty HospitalComment on above:Performed By: #### DIFE, MONO, CDP #### [facility] [address] [place] [address] Assembler Piano: Dangelo Driscoll mean volume (Bld) [Entitic vol]NOT REPORTEDNormal6.0-12.0[facility] Glenbeigh HospitalComment on above:Performed By: #### DIFE, MONO, CDP #### [facility] [address] [place] [address] Assembler Piano: JODI Driscolllatelets (Bld) [#/Vol]NOT REPORTEDNormalAcmc Healthcare System Glenbeigh HospitalComment on above:Performed By: #### DIFE, MONO, CDP #### [facility] [address] [place] [address] Assembler Piano: SIOMARA Driscoll morphology finding Nom (Bld)NOT REPORTED NormalSelect Medical Ohiohealth Rehabilitation Hospital - DublinComment on above:Performed By: #### DIFE, MONO, CDP #### [facility] [address] [place] [address] Assembler Piano: LISE Driscoll MorphologyNOT REPORTEDNormalSelect Medical Ohiohealth Rehabilitation Hospital - DublinComment on above:Performed By: #### DIFE, MONO, CDP #### [facility] [address] [place] [address] Assembler Piano: BRADLY Driscolliff Methodon 39-10-4354Zpdi MethodAUTONormal [facility] Hospital - DublinComment on above:Performed By: #### DIFE, MONO, CDP #### [facility] [address] [place] [address] Assembler Piano: TL Driscollononucleosis Screenon 41-91-0791Zkztvibdn (Bld) [#/Vol]NegativeNormalNEGAcmc Healthcare System Glenbeigh HospitalComment on above:Performed By: #### DIFE, MONO, CDP #### [facility] [address] [place] [address] Assembler Piano: Jose Farfan MD Vital Signs Date TimeVital SignValuePerforming NhiibjqniCdikrjkk72-96-8900 09:13-0500Body feyvnx85.25 kgCorey Naseem DO Work Phone: [facility] CenterJgtnjajlhf54-36-9965 09:13-0500Diastolic blood lxasnyjl01 mm[Hg]Maciej Naseem DO Work Phone: [phone] [place], [place] [address]Xtsywqgwcc07-11-1649 09:13-0500Systolic blood bsazkjjv149 mm[Hg]Maciej Naseem DO Work Phone: [phone] [place], [place] [address]Pqcugniwiw45-22-2953 16:11-0500Body .98 kgCorey Naseem DO Work Phone: [phone]-[facility] CenterJbpibkpkmb00-46-4310 16:11-0500Diastolic blood ozosezaq88 mm[Hg]Maciej Naseem DO Work Phone: [phone]-[facility] CenterAbfbcftjbj44-69-3608 16:11-0500Systolic blood pefayedc975 mm[Hg]Maciej Naseem DO Work Phone: [facility] CenterEjdsgwxrqg00-30-5740 15:59-0400Body temperature 97.88 [degF]Alon Lopez [facility]11-02-2023 15:59-0400 Diastolic blood opzzzeev21 mm[Hg]Alon Lopez [facility]11-02-2023 15:59-0400Heart rate95 /minAlon Lopez [facility]11-02-2023 15:59-0400 Respiratory rate20 /minAlon Lopez [facility]11-02-2023 15:59-1089AyJ5% (BldA) [Mass fraction]97 %Alon Lopez [facility]11-02-2023 15:59-0400 Systolic blood mztyxzfs730 mm[Hg]Alon Lopez [facility]01-05-2023 14:54-0500Blood Pressure LocationSveronica Whitt [phone]-WxfhcMercer County Community Hospital 04-08-2022 14:54-0500Diastolic blood mm[Hg]Alison Sergey [phone]-DvuomMercer County Community Hospital 04-08-2022 14:54-0500Heart vsey849 /minSveronica Whitt 562-2828Mrksos-VofheMercer County Community Hospital 04-08-2022 14:54-8800MmD4% (BldA) [Mass fraction]98 %Alison Whitt [phone]-RcgtqMercer County Community Hospital 04-08-2022 14:54-0500Systolic blood joijnxvv845 mm[Hg]Alison Whitt [phone]-ReveqMercer County Community Hospital Encounters Encounter DateEncounter TypeCare ProviderFacilityStart: 01-10-2025 End: 05-08-7526szenmxtyrbDRDVUJ A LEHMANNFacility:[facility] [place]Start: 10-15-2024 End: 54-72-6030ezrjuxhkddCHVFFC A LEHMANNFacility:[facility]MCStart: 10-15-2024 End: 44-65-7626hyavvpqrkvUJHDQQ A LEHMANNFacility:[facility] [place]Start: 10-04-2024 End: 11-41-8604lyfzyiyadqOFHWSZ A LEHMANNFacility:[facility] [place]vueStart: 05-29-2024 End: 56-45-5890yqpriexyxwQkqyb R FAZIOFacility:FTMCStart: 05-29-2024 End: 53-41-0247Gnqwxye encounter procedureCorey R NASEEM [facility] Start: 05-25-2024 End: 14-19-6626Ybw Drop offSHELLY A JEREMIAH [facility] Start: 05-25-2024 End: 01-67-5299rvssfhnwnrLMXMXQ A LEHMANNFacility:[facility] [place]vueStart: 05-18-2024 End: 77-63-7774wfjkvjyrlqDPZB REFERRALFacility:FTMCStart: 05-18-2024 End: 45-32-2644Bdvxmld encounter procedureSELF REFERRALMarietta Osteopathic Clinic Start: 03-26-2024 End: 60-47-2391Mdmhfw flowsheetCorey Naseem DO Work Phone: noms BCP OBStart: 03-26-2024 End: 61-98-2412Whhpbs flowsheetCorey Naseem DO Work Phone: [facility]oms BCP OBStart: 03-26-2024 End: 30-83-4224Qisqyekvw Result EncounterCorey Naseem DO Work Phone: noms External Department UnsolicitedStart: 03-26-2024 End: 16-92-5365Bazjdod encounter procedureCorey Naseem DO Work Phone: noms HealthcareStart: 03-26-2024 End: 94-74-3377Ygctqvyy preventive med est patient 40-64yrsCorey Naseem DO Work Phone: NOWS BCP OBComment on above:Well woman exam with routine gynecological exam; Breast cancer screening by mammogramStart: 03-26-2024 End: 15-80-4350bnmjuevkjkNUZRP FAZIONot AvailableStart: 02-28-2024 End: 59-07-0713Ziloaaq encounter procedureCorey Naseem DO Work Phone: noms BCP OBComment on above:Encounter for removal and reinsertion of IUD; Encounter for insertion of Mirena IUDStart: 02-02-2024 End: 63-44-6732spxkjlshwxUIBLCR A LEHMANNFacility:[facility] [place]vueStart: 01-02-2024 End: 07-04-0322acgtrfntiwGvelgj E. RossFacility:[facility] BellevueStart: 10-21-2023 ambulatorySHELLY A LEHMANNFacility:[facility] [place]vueStart: 09-30-2023 End: 50-52-0128hsbomvgghvXAYRWF A LEHMANNFacility:[facility] [place]vueStart: 09-02-2023 End: 15-85-8564dfgcmzkulnWYXVMM A LEHMANNFacility:[facility] [place]vueStart: 07-19-2023 End: 18-25-2843rsoxifxztaLddx T AMESFacility:FTMCStart: 06-28-2023 End: 78-39-4033sjoabuuckoYorsbm E. RossFacility:[facility] FM BellevueStart: 02-03-2023 End: 33-01-1208Ubpbrqenc department patient visitAlon Lopez [facility] Start: 01-14-2023 End: 79-27-6069Dfa Drop offSveronica Whitt [facility] Start: 04-19-2022 End: 37-26-7929ykchoidznvQR MACIEJ FAZIOFacility:D0Jxshl: 04-08-2022 End: 41-43-7043Tds Drop offSveronica Whitt [facility] Start: 04-08-2022 End: 37-34-5187Hcxtxaf encounter procedureSveronica Whitt [phone]-FkngaGreene Memorial Hospital Medicine [place] Start: 07-09-2021 End: 73-15-9437aaidbbmsfxPK MACIEJ FAZIOFacility:D1Mrjew: 06-12-2021 End: 32-42-3200cufaqremzrOZ MACIEJ FAZIOFacility:I7Wfmxc: 10-02-2018 End: 56-26-7186Hoynpse encounter procedureMATTClifford Hussein [facility] Procedures DateProcedureProcedure DetailPerforming ClinicianStart: 21-87-4129KOM,APTIMA HPV,AGE GDLNCorey Naseem DO Work Phone: Start: 34-07-6124WLQ REMOVALCorey Naseem DO Work Phone: Start: 40-44-0506VHX INSERTIONCorey Naseem DO Work Phone: Start: 66-22-2510YwdmrjafobwHlnfe Naseem DO Work Phone: Start: 51-56-7334Fxees count complete auto&auto difrntl wbcMATTHEW CLINGMANStart: 89-61-6705Upkzgfqhjgj antibodies screenMATTHEW CLINGMANBack braces, device (physical object)Alison Whitt cesarean sectionSveronica Whitt TonsillectomySamuel Sergey Plan of Treatment DateCare ActivityDetailAuthorStart: 03-26-2024 End: 50-13-5128II Breast - bilateral ScreeningBilateral screening mammogram Imaging Routine Breast cancer screening by mammogram Expected: 03/26/2024 (Approximate), Expires: 05/27/2025NOSSM [facility] Work Phone: comment on above:Expected: 03/26/2024 (Approximate), Expires: 05/27/2025Start: 03-26-2024 End: 13-71-7681Jxqfjds encounter procedureNOMS BCP OBComment on above:Well woman exam with routine gynecological exam; Breast cancer screening by mammogramStart: 10-19-3406Tmomljprw vaccination Influenza Vaccine (#1)[facility]OMS HealthcareStart: 48-48-8194Eluaqqkfy for malignant neoplasm of breastMammogramNOMS HealthcareStart: 34-99-5193Ctreedjpt for malignant neoplasm of cervixNOMS HealthcareStart: 31-35-0782Fezcuotig for malignant neoplasm of cervixPap SmearNOSD HealthcareStart: 92-75-4418Jpednazao for malignant neoplasm of colonNOMS HealthcareTHIN PREP TIS PAP AND HR HPV DNA THIN PREP TIS PAP AND HR HPV DNA Pathology and Cytology Routine Well woman exam with routine gynecological exam Ordered: 03/26/2024[facility] HealthcareComment on above:Ordered: 03/26/2024 Immunizations Immunization DateImmunizationNotesCare LenmdwzdGrkeryzd63-38-8510yjuobucnw virus vaccine, unspecified formulationSELF [facility]10-13-2023influenza, injectable, quadrivalent, preservative freeSamuel Sergey [phone]-RwiqyUniversity Hospitals Cleveland [facility] Center10-13-2023 influenza virus vaccine, unspecified formulationCoreliu Naseemdanielle MARCELO Work Phone: [facility] CenterSlcvogxawx21-34-4689jwtsilnmw virus vaccine, unspecified formulationSveronica Whitt [phone]-PxxytMercer County Community Hospital 01-12-3085jfunzlgsn virus vaccine, unspecified formulationSveronica Whitt 124-3603Qxbrfk-LokfyUniversity Hospitals Cleveland Medical Center11-30-2021 SARS-CoV-2 (COVID-19) mRNA-1273 vaccineSveronica Whitt 289-1756Hsounr-HpyjkUniversity Hospitals Cleveland [facility] Center10-06-2021 influenza virus vaccine, unspecified formulationSveronica Whitt [phone]-RfxooUniversity Hospitals Cleveland Medical Center01-29-2021 SARS-CoV-2 (COVID-19) mRNA-1273 vaccineSveronica Whitt 778-7930Dtmeon-FylmbUniversity Hospitals Cleveland Medical Center12-29-2020 SARS-CoV-2 (COVID-19) mRNA-1273 vaccineSveronica Whitt 519-9914Aoyghd-UbifuUniversity Hospitals Cleveland [facility] Center11-06-2015 influenza virus vaccine, unspecified formulationSveronica Whitt [phone]-NrkxbUniversity Hospitals Cleveland Medical Center Payers DatePayer CategoryPayerPolicy [id number] Health InsuranceCENTERVILLECAL MUTUAL [id number] 2.0.1.994272.3.579.2.174 [id number] 2.0.1.276418.3.57[id number] 2..1.265198.3.57[id number] 2.0.1.482656.3.57[id number] 2..1.590905.3.57[id number] 2.160.1.504449.3.57[id number] 2.0.1.566881.3.57[id number] 2.0.1.262405.3.57[id number] 2.0.1.722111.3.57[id number] 2.16.840.1.869395.3.57[id number] 2.16.840.1.030312.3.57[id number] 2.16.840.1.466934.3.57[id number] 2..840.1.497789.3.57[id number] 2..840.1.921677.3.57[id number] 2.16.840.1.358605.3.57[id number] 2.0.1.295715.3.57[id number] 2.840.1.041763.3.57[id number] 2.0.1.420438.3.57[id number] 2.0.1.526766.3.579.2.27276-40-6231TxbsinrSYD430Y21120 Social History DateTypeDetailFacilityTobacco smoking statusLake [facility] Sex Assigned At BirthFemalTriHealth McCullough-Hyde Memorial Hospitaltart: 01-14-2023 End: 87-77-8830Tfzyhyg smoking statusNever smoked tobacco (finding)[facility] BellevueTobacc smoking statusNeverOur [facility] smoking status NHISTobacco smoking consumption unknownParkland Health CenterStart: 04-07-7701Rmn assigned at birthNot on [facility] Functional Status XxnoVomkluszqnAktmbxBmbskcne23-14-9285Vidwmylkcd StatusN/ERINVeterans Health Administration01-05-2023Functional StatusN/[facility] [place] Clinical Notes 04-08-2022 to 01-10-2025 Note Date & YgfwJwbtAwenpsnk52-89-0727 NotePatient Education Obstetrics and Gynecology Vaginal Yeast Infection, Adult Vaginal yeast infection is a condition that causes vaginal discharge as well as soreness, swelling,and redness (inflammation) of the vagina. This is a common condition. Some women get this infectionfrequently. What are the causes? This condition is caused by a change in the normal balance of the yeast (Jannet) and normal bacteria that live in the vagina. This change causes an overgrowth of yeast, which causes the inflammation. What increases the risk? The condition is more likely to develop in women who: ??? Take antibiotic medicines. ??? Have diabetes. ??? Take control pills. ??? Are . ??? Douche often. ??? Have a weak body defense system (immune system). ??? Have been taking steroid medicines for a long time. ??? Frequently wear tight clothing. What are the signs or symptoms? Symptoms of this condition include: ??? White, thick, creamy vaginal discharge. ??? Swelling, itching, redness, and irritation of the vagina. The lips of the vagina (labia) may beaffected as well. ??? Pain or a burning feeling while urinating. ??? Pain during sex. How is this diagnosed? This condition is diagnosed based on: ??? Your medical history. ??? A physical exam. ??? A pelvic exam. Your health care provider will examine a sample of your vaginal discharge under a microscope. Your health care provider may send this sample for testing to confirm the diagnosis. How is this treated? This condition is treated with medicine. Medicines may be nzwv-lda-vwzubcg or prescription. You maybe told to use one or more of the following: ??? Medicine that is taken by mouth (orally). ??? Medicine that is applied as a cream (topically). ??? Medicine that is inserted directly into the vagina (suppository). Follow these instructions at home: ??? Take or apply mksu-wsq-divlmmp and prescription medicines only as told by your health care provider. ??? Do not use tampons until your health care provider approves. ??? Do not have sex until your infection has cleared. Sex can prolong or worsen your symptoms of infection. Ask your health care provider when it is safe to resume sexual activity. ??? Keep all follow-up visits. This is important. How is this prevented? Do not wear tight clothes, such as pantyhose or tight pants. ??? Wear breathable cotton underwear. ??? Do not use douches, perfumed soap, creams, or powders. ??? Wipe from front to back after using the toilet. ??? If you have diabetes, keep your blood sugar levels under control. ??? Ask your health care provider for other ways to prevent yeast infections. Contact a health care provider if: ??? You have a fever. ??? Your symptoms go away and then return. ??? Your symptoms do not get better with treatment. ??? Your symptoms get worse. ??? You have new symptoms. ??? You develop blisters in or around your vagina. ??? You have blood coming from your vagina and it is not your menstrual period. ??? You develop pain in your abdomen. Summary ??? Vaginal yeast infection is a condition that causes discharge as well as soreness, swelling, andredness (inflammation) of the vagina. ??? This condition is treated with medicine. Medicines may be gpmp-kas-uddrait or prescription. ??? Take or apply xtfb-qsh-gngqqzg and prescription medicines only as told by your health care provider. ??? Do not douche. Resume sexual activity or use of tampons as instructed by your health care provider. ??? Contact a health care provider if your symptoms do not get better with treatment or your symptoms go away and then return. This information is not intended to replace advice given to you by your health care provider. Make sure you discuss any questions you have with your health care provider. Document Revised: 06/08/2021 Document Reviewed: 06/08/2021 [employer] Patient Education ? 2023 [employer] 10-15-2024 NotePatient Education Orthopedics Acute Back Pain, Adult Acute back pain is sudden and usually short-lived. It is often caused by an injury to the muscles and tissues in the back. The injury may result from: ??? A muscle, tendon, or ligament getting overstretched or torn. Ligaments are tissues that connectbones to each other. Lifting something improperly can cause a back strain. ??? Wear and tear (degeneration) of the spinal disks. Spinal disks are circular tissue that providecushioning between the bones of the spine (vertebrae). ??? Twisting motions, such as while playing sports or doing yard work. ??? A hit to the back. ??? Arthritis. You may have a physical exam, lab tests, and imaging tests to find the cause of your pain. Acute back pain usually goes away with rest and home care. Follow these instructions at home: Managing pain, stiffness, and swelling ??? Take sszx-rla-xohadxy and prescription medicines only as told by your health care provider. Treatment may include medicines for pain and inflammation that are taken by mouth or applied to the skin, or muscle relaxants. ??? Your health care provider may recommend applying ice during the first 24?48 hours after your pain starts. To do this: ? Put ice in a plastic bag. ? Place a towel between your skin and the bag. ? Leave the ice on for 20 minutes, 2?3 times a day. ? Remove the ice if your skin turns bright red. This is very important. If you cannot feel pain, heat, or cold, you have a greater risk of damage to the area. ??? If directed, apply heat to the affected area as often as told by your health care provider. Usethe heat source that your health care provider recommends, such as a moist heat pack or a heating pad. ? Place a towel between your skin and the heat source. ? Leave the heat on for 20?30 minutes. ? Remove the heat if your skin turns bright red. This is especially important if you are unable to feel pain, heat, or cold. You have a greater risk of getting burned. Activity ??? Do not stay in bed. Staying in bed for more than 1?2 days can delay your recovery. ??? Sit up and stand up straight. Avoid leaning forward when you sit or hunching over when you stand. ? If you work at a desk, sit close to it so you do not need to lean over. Keep your chin tucked in.Keep your neck drawn back, and keep your elbows bent at a 90-degree angle (right angle). ? Sit high and close to the steering wheel when you drive. Add lower back (lumbar) support to your car seat, if needed. ??? Take short walks on even surfaces as soon as you are able. Try to increase the length of time you walk each day. ??? Do not sit, drive, or instructor correspondence school one place for more than 30 minutes at a time. Sitting or standing for long periods of time can put stress on your back. ??? Do not drive or use heavy machinery while taking prescription pain medicine. ??? Use proper lifting techniques. When you bend and lift, use positions that put less stress on your back: ? Bend your knees. ? Keep the load close to your body. ? Avoid twisting. ??? Exercise regularly as told by your health care provider. Exercising helps your back heal fasterand helps prevent back injuries by keeping muscles strong and flexible. ??? Work with a physical therapist to make a safe exercise program, as recommended by your health care provider. Do any exercises as told by your physical therapist. Lifestyle ??? Maintain a healthy weight. Extra weight puts stress on your back and makes it difficult to havegood posture. ??? Avoid activities or situations that make you feel anxious or stressed. Stress and anxiety increase muscle tension and can make back pain worse. Learn ways to manage anxiety and stress, such as through exercise. General instructions ??? Sleep on a firm mattress in a comfortable position. Try lying on your side with your knees slightly bent. If you lie on your back, put a pillow under your knees. ??? Keep your head and neck in a straight line with your spine (neutral position) when using electronic equipment like smartphones or pads. To do this: ? Raise your smartphone or pad to look at it instead of bending your head or neck to look down. ? Put the smartphone or pad at the level of your face while looking at the screen. ??? Follow your treatment plan as told by your health care provider. This may include: ? Cognitive or behavioral therapy. ? Acupuncture or massage therapy. ? Meditation or yoga. Contact a health care provider if: ??? You have pain that is not relieved with rest or medicine. ??? You have increasing pain going down into your legs or buttocks. ??? Your pain does not improve after 2 weeks. ??? You have pain at night. ??? You lose weight without trying. ??? You have a fever or chills. ??? You develop nausea or vomiting. ??? You develop abdominal pain. Get help right away if: ??? You develop new bowel or bladder control problems. ??? You have (more content not included)...[facility]12-23-2024 History of Present illness Narrative* CAMELIA Mckeon - 03/26/2024 9:00 AM EST Reason for Appointment: Patient ID: Eleonora Diaz is a 48 y.o. female who presents for Well Women Visit Patient presents today for Annual Exam. MEDICATIONS Current Outpatient Medications Medication Instructions nitrofurantoin (macrocrystal-monohydrate) (MACROBID) 100 mg, 2 times daily ALLERGIES No Known Allergies PROBLEMS Active Ambulatory Problems Diagnosis Date Noted No Active Ambulatory Problems Resolved Ambulatory Problems Diagnosis Date Noted No Resolved Ambulatory Problems No Additional Past Medical History HISTORY PAST MEDICAL HISTORY SOCIAL HISTORY History reviewed. No pertinent past medical history. Social History Tobacco Use Smoking status: Not on file Smokeless tobacco: Not on file Substance Use Topics Alcohol use: Not on file Drug use: Not on file FAMILY HISTORY No family history on file. SURGICAL HISTORY History reviewed. No pertinent surgical history. REVIEW OF SYSTEMS Review of Systems: Review of Systems Constitutional: Negative. HENT: Negative. Eyes: Negative. Respiratory: Negative. Cardiovascular: Negative. Gastrointestinal: Negative. Genitourinary: Negative. Musculoskeletal: Negative. Skin: Negative. Neurological: Negative. All other systems reviewed and are negative. Hematological: Negative. Endocrine: Negative. Allergic/Immunologic: Negative. OBJECTIVE Objective: Physical Exam Constitutional: Appearance: Normal appearance. She is normal weight. Genitourinary: Right Adnexa: not tender and no mass present. Left Adnexa: not tender and no mass present. No cervical discharge. IUD strings visualized. Breasts: Breasts are soft. Right: Normal. Left: Normal. HENT: Head: Normocephalic. Nose: Nose normal. Mouth/Throat: Mouth: Mucous membranes are moist. Cardiovascular: Rate and Rhythm: Normal rate. Pulses: Normal pulses. Pulmonary: Effort: Pulmonary effort is normal. Breath sounds: Normal breath sounds. Abdominal: General: Bowel sounds are normal. Palpations: Abdomen is soft. Musculoskeletal: General: Normal range of motion. Cervical back: Normal range of motion. Neurological: General: No focal deficit present. Mental Status: She is alert and oriented to person, place, and time. Skin: General: Skin is warm and dry. Psychiatric: Mood and Affect: Mood normal. Behavior: Behavior normal. Thought Content: Thought content normal. Judgment: Judgment normal. Vitals and nursing note reviewed. Exam conducted with a um rn present. Vitals: There is no height or weight on file to calculate BMI. BP: 120/70 No LMP recorded. ASSESSMENT & PLAN ICD-10-CM 1. Well woman exam with routine gynecological exam Z01.419 THIN PREP TIS PAP AND HR HPV DNA 2. Breast cancer screening by mammogram Z12.31 Bilateral screening mammogram Bilateral screening mammogram Annual: Patient presents today for an annual exam. Patient states she is doing well and has no complaints. Pap was obtained without difficulty and patient given mammogram order to have scheduled/obtained. Orders Placed This Encounter Procedures Bilateral screening mammogram Follow Up: Patient is to return in one year for annual unless needed otherwise. Documented by CAMELIA Mckeon on behalf of: Maciej Gusman DO documented in this encounterParkland Health [id number] History of Present illness Narrative* Susan Rubi LPN - 02/28/2024 10:30 AM ESTAssociated Order(s): IUD Removal; IUD Insertion Post-Procedure Diagnose(s): Encounter for removal and reinsertion of IUD; Encounter for insertion of Mirena IUD Reason for Appointment: Patient ID: Eleonora Diaz is a 48 y.o. female who presents for No chief complaint on file. Patient presents today for a IUD Insertion and IUD Removal appointment. MEDICATIONS No current outpatient medications ALLERGIES Not on File SURGICAL HISTORY No past surgical history on [...] appearance. She is well-developed. Genitourinary: Vulva normal. Cardiovascular: Rate and Rhythm: Normal rate and regular rhythm. Pulmonary: Effort: Pulmonary effort is normal. Breath sounds: Normal breath sounds. Abdominal: General: Bowel sounds are normal. There is no distension. Palpations: Abdomen is soft. Tenderness: There is no abdominal tenderness. There is no guarding or rebound. Musculoskeletal: General: No swelling. Normal range of motion. Right lower leg: No edema. Left lower leg: No edema. Neurological: Mental Status: She is alert and oriented to person, place, and time. Skin: General: Skin is warm and dry. Psychiatric: Mood and Affect: Mood normal. Behavior: Behavior normal. Vitals and nursing note reviewed. Exam conducted with a um rn present. Vitals: There is no height or weight on file to calculate BMI. BP: No LMP recorded. ASSESSMENT & PLAN Assessment/Plan Encounter Diagnosis: ICD-10-CM 1. Encounter for removal and reinsertion of IUD Z30.433 IUD Removal IUD Insertion 2. Encounter for insertion of Mirena IUD Z30.430 IUD Insertion IUD Removal Date/Time: 02/28/2024 4:05 PM Performed by: Maciej Gusman DO Authorized by: Maciej Gusman DO Consent: Consent obtained: Written Consent given by: Patient Procedure risks and benefits discussed: yes Patient questions answered: yes Patient agrees, verbalizes understanding, and wants to proceed: yes Educational handouts given: yes Instructions and paperwork completed: yes [place] protocol: Patient states understanding of procedure being performed: yes Relevant documents present and verified: yes Test results available and properly labeled: yes Imaging studies available: yes Required blood products, implants, devices, and special equipment available: yes Site marked: yes Procedure: Removed with no complications: yes Removal due to mechanical complications of IUD: no Removal due to infection and inflammatory reaction: no Comments: IUD Removal: Patient presents today for removal of IUD. Written consent was obtained and patient was placed in dorsal lithotomy position with feet in stirrups. A sterile speculum was inserted into the vagina and the cervix was visualized. The IUD strings were grasped gently with forceps and the IUD was removed in its entirety without difficulty. The IUD was shown to the patient then properly discarded. IUD Insertion Performed by: Maciej Gusman DO Authorized by: Maciej Gusman DO Procedure: IUD insertion Consent obtained by patient, parent, or legal power of employee benefits attorney - including discussion of procedurerisks and benefits, patient questions answered, and patient education provided: yes risk: reasonably certain the patient is not Immediately prior to procedure a time out was called: no Pelvic exam performed: no Speculum placed in vagina: yes Cervix cleaned and prepped: yes Tenaculum/Allis/Ring Forceps applied to cervix: yes Anesthesia used: no IUD inserted without complications: yes OSM: 52 mg Levonorgestrel 20 MCG/DAY Patient tolerated procedure well: yes Inserted with ultrasound guidance: no Intended removal date: 5 years Insertion comments: IUD Insertion: Patient presents today for an IUD Insertion. Patient is having a Mirena placed and written consent was obtained. Patient was placed in the dorsal lithotomy position with feet in stirrups. A sterile speculum ws placed into the vagina and the cervix was visualized. Cervix was cleansed with betadine and the anterior lip was grasped with ring forceps. Uterus was then gently sounded. New IUD device was gently advanced through the endocervix, toward te uterine fundus. The IUD was then deployed as device was gently removed from the uterus. The IUD strings were cut to the length from external os. Allinstruments were removed from the vagina. Post-procedure instructions given. All of patients questions were answered and she expressed understanding. Advised to call interim with any questions or concerns. Follow Up: Patient is to return to the office in 4 weeks for a string check. Documented by Susan Rubi LPN on behalf of: Maciej Gusman DO documented in this encounterParkland Health [id number] NoteNurse Consultation Note Reason for Visit Here for toradol injection ordered by Dr Whitt for back pain Medications Diflucan 150 mg Tab, 150 mg= 1 tab(s), Oral, q72hr Fioricet oral capsule, See Instructions Mirena 52 mg intrauteral device, 52 mg= 1 EA, IntraUteral, Once phentermine 37.5 mg Tab, 37.5 mg= 1 tab(s), Oral, Daily Allergies No Known Allergies Immunizations Vaccine Date Status influenza virus vaccine, inactivated 01/14/2023 Given influenza virus vaccine, inactivated 01/29/2022 Recorded influenza virus vaccine, inactivated 01/15/2022 Recorded SARS-CoV-2 (COVID-19) mRNA-1273 vaccine 03/03/2021 Recorded influenza virus vaccine, inactivated 01/07/2021 Recorded SARS-CoV-2 (COVID-19) mRNA-1273 vaccine 05/02/2020 Recorded SARS-CoV-2 (COVID-19) mRNA-1273 vaccine 04/01/2020 Recorded influenza virus vaccine, inactivated 02/07/2015 [facility] NotePatient Education Infectious Disease Blepharitis Blepharitis is swelling of the eyelids. It can cause the eyes to feel dry or gritty. Other symptomsmay include: ? Reddish, scaly skin around the scalp and eyebrows. ? Eyelids that itch or burn. ? Fluid that leaks from the eye at night. This causes the eyelashes to stick together in the morning. ? Eyelashes that fall out. ? Redness of the eyes. ? Eyes that are sensitive to light. Follow these instructions at home: Watch for any changes in how your eyes look or feel. Tell your doctor about any changes. Follow these instructions to help with your condition. Keeping clean ? Wash your hands often with soap and water for at least 20 seconds. ? Clean your eyes. Wash the edges of your eyelids using eyelid wipes or a small amount of baby shampoo that has been mixed with warm water (diluted). Do this 2 or more times a day. ? Wash your face and eyebrows at least once a day. ? Use a clean towel each time you dry your eyelids. ? Do not use the towel to clean or dry other areas of your body. ? Do not share your towel with anyone. General instructions ? Avoid wearing makeup until you get better. Do not share makeup with anyone. ? Avoid rubbing your eyes. ? Use a warm compress on your eyes for 5?10 minutes at a time. Do this 1 or 2 times a day, or as told by your doctor. You can use: ? A towel with warm water on it. ? A heating pad that can be warmed in the microwave. The pad should be very warm but not hot enoughto burn the skin. ? If you were given an antibiotic cream or eye drops, use the medicine as told by your doctor. Do not stop using the medicine even if you feel better. ? Keep all follow-up visits. Contact a doctor if: ? Your eyelids feel hot. ? You have blisters on your eyelids. ? You have a rash on your eyelids. ? The swelling does not go away in 2?4 days. ? The swelling gets worse. Get help right away if: ? You have pain that gets worse or spreads to other parts of your face. ? You have redness that gets worse or spreads to other parts of your face. ? You have changes in how you see (vision). ? You have pain when you look at lights or things that move. ? You have a fever. Summary ? Blepharitis is swelling of the eyelids. ? Watch for any changes in how your eyes look or feel. Tell your doctor about any changes. ? Follow home care instructions as told by your doctor. Wash your hands often with soap and water for at least 20 seconds. Avoid wearing makeup. Do not rub your eyes. ? Use a warm compress, creams, or eye drops as told by your doctor. ? Let your doctor know if you have changes in how you see, blisters or a rash on your eyelids, or other problems. This information is not intended to replace advice given to you by your health care provider. Make sure you discuss any questions you have with your health care provider. Document Revised: 04/22/2021 Document Reviewed: 04/22/2021 [employer] Patient Education ? 2022 [employer]. Obstetrics and Gynecology Vaginal Yeast Infection, Adult Vaginal yeast infection is a condition that causes vaginal discharge as well as soreness, swelling,and redness (inflammation) of the vagina. This is a common condition. Some women get this infectionfrequently. What are the causes? This condition is caused by a change in the normal balance of the yeast (Jannet) and normal bacteria that live in the vagina. This change causes an overgrowth of yeast, which causes the inflammation. What increases the risk? The condition is more likely to develop in women who: ? Take antibiotic medicines. ? Have diabetes. ? Take control pills. ? Are . ? Douche often. ? Have a weak body defense system (immune system). ? Have been taking steroid medicines for a long time. ? Frequently wear tight clothing. What are the signs or symptoms? Symptoms of this condition include: ? White, thick, creamy vaginal discharge. ? Swelling, itching, redness, and irritation of the vagina. The lips of the vagina (labia) may be affected as well. ? Pain or a burning feeling while urinating. ? Pain during sex. How is this diagnosed? This condition is diagnosed based on: ? Your medical history. ? A physical exam. ? A pelvic exam. Your health care provider will examine a sample of your vaginal discharge under a microscope. Your health care provider may send this sample for testing to confirm the diagnosis. How is this treated? This condition is treated with medicine. Medicines may be snix-emq-owjtamx or prescription. You maybe told to use one or more of the following: ? Medicine that is taken by mouth (orally). ? Medicine that is applied as a cream (topically). ? Medicine that is inserted directly into the vagina (suppository). Follow these instructions at home: ? Take or apply aozi-gbb-bhcqric and prescription medicines only as told (more content not included)...[facility]11-02-2023 Hospital Discharge instructions Patient Education 02/03/2023 17:24:13 Acute Back Pain, Adult Acute Back Pain, Adult Acute back pain is sudden and usually short-lived. It is often caused by an injury to the muscles and tissues in the back. The injury may result from: A muscle, tendon, or ligament getting overstretched or torn. Ligaments are tissues that connect bones to each other. Lifting something improperly can cause a back strain. Wear and tear (degeneration) of the spinal disks. Spinal disks are circular tissue that provide cushioning between the bones of the spine (vertebrae). Twisting motions, such as while playing sports or doing yard work. A hit to the back. Arthritis. You may have a physical exam, lab tests, and imaging tests to find the cause of your pain. Acute back pain usually goes away with rest and home care. Follow these instructions at home: Managing pain, stiffness, and swelling Take atve-spv-mtelrkx and prescription medicines only as told by your health care provider. Treatment may include medicines for pain and inflammation that are taken by mouth or applied to the skin, or muscle relaxants. Your health care provider may recommend applying ice during the first 24 48 hours after your pain starts. To do this: ?Put ice in a plastic bag. ?Place a towel between your skin and the bag. ?Leave the ice on for 20 minutes, 2 3 times a day. ?Remove the ice if your skin turns bright red. This is very important. If you cannot feel pain, heat, or cold, you have a greater risk of damage to the area. If directed, apply heat to the affected area as often as told by your health care provider. Use theheat source that your health care provider recommends, such as a moist heat pack or a heating pad. ?Place a towel between your skin and the heat source. ?Leave the heat on for 20 30 minutes. ?Remove the heat if your skin turns bright red. This is especially important if you are unable to feel pain, heat, or cold. You have a greater risk of getting burned. Activity Do not stay in bed. Staying in bed for more than 1 2 days can delay your recovery. Sit up and stand up straight. Avoid leaning forward when you sit or hunching over when you stand. ?If you work at a desk, sit close to it so you do not need to lean over. Keep your chin tucked in. Keep your neck drawn back, and keep your elbows bent at a 90-degree angle (right angle). ?Sit high and close to the steering wheel when you drive. Add lower back (lumbar) support to your car seat, if needed. Take short walks on even surfaces as soon as you are able. Try to increase the length of time you walk each day. Do not sit, drive, or instructor correspondence school one place for more than 30 minutes at a time. Sitting or standing for long periods of time can put stress on your back. Do not drive or use heavy machinery while taking prescription pain medicine. Use proper lifting techniques. When you bend and lift, use positions that put less stress on your back: ?Bend your knees. ?Keep the load close to your body. ?Avoid twisting. Exercise regularly as told by your health care provider. Exercising helps your back heal faster andhelps prevent back injuries by keeping muscles strong and flexible. Work with a physical therapist to make a safe exercise program, as recommended by your health care provider. Do any exercises as told by your physical therapist. Lifestyle Maintain a healthy weight. Extra weight puts stress on your back and makes it difficult to have good posture. Avoid activities or situations that make you feel anxious or stressed. Stress and anxiety increase muscle tension and can make back pain worse. Learn ways to manage anxiety and stress, such as through exercise. General instructions Sleep on a firm mattress in a comfortable position. Try lying on your side with your knees slightlybent. If you lie on your back, put a pillow under your knees. Keep your head and neck in a straight line with your spine (neutral position) when using electronicequipment like smartphones or pads. To do this: ?Raise your smartphone or pad to look at it instead of bending your head or neck to look down. ?Put the smartphone or pad at the level of your face while looking at the screen. Follow your treatment plan as told by your health care provider. This may include: ?Cognitive or behavioral therapy. ?Acupuncture or massage therapy. ?Meditation or yoga. Contact a health care provider if: You have pain that is not relieved with rest or medicine. You have increasing pain going down into your legs or buttocks. Your pain does not improve after 2 weeks. You have pain at night. You lose weight without trying. You have a fever or chills. You develop nausea or vomiting. You develop abdominal pain. Get help right away if: You develop new bowel or bladder control problems. You have unusual weakness or numbness in your arms or legs. You feel faint. These symptoms may represent a serious problem that is an emergency. Do not wait to see if the symptoms will go away. Get medical help right away. Call your local emergency services (911 in the [place] Do not drive yourself to the hospital. Summary Acute back pain is sudden and usually short-lived. Use proper lifting techniques. When you bend and lift, use positions that put less stress on your back. Take hcmf-nhe-grudpil and prescription medicines only as told by your health care provider, and apply heat or ice as told. This information is not intended to replace advice given to you by your health care provider. Make sure you discuss any questions you have with your health care provider. Document Revised: 06/12/2021 Document Reviewed: 06/12/2021 [employer] Patient Education 2022 [employer]. 02/03/2023 17:24:13 Back Injury Prevention Back Injury Prevention Back injuries can be very painful. They can also be difficult to heal. After having one back injury, you are more likely to have another. It is important to learn how to avoid injuring or re-injuringyour back. The following tips can help you prevent a back injury. What actions can I take to prevent back injuries? Nutrition changes Talk with your health care provider about your overall diet, and especially about foods that strengthen your bones. Ask your health care provider how much calcium and vitamin D you need each day. These nutrients help to prevent weakening of the bones (osteoporosis). Osteoporosis can cause broken (fractured) bones,which lead to back pain. Eat foods that are good sources of calcium. These include dairy products, green leafy vegetables, and products that have had calcium added to them (are fortified). Eat foods that are good sources of vitamin D. These include milk and foods that are fortified with vitamin D. If needed, take supplements and vitamins as directed by your health care provider. Physical fitness Physical fitness strengthens your bones and your muscles. It also increases your balance and strength. Exercise for 30 minutes a day on most days of the week, or as directed by your health care provider. Make sure to: ?Do aerobic exercises, such as walking, jogging, biking, or swimming. ?Do exercises that increase balance and strength, such as elder chi and yoga. These can decrease yourrisk of falling and injuring your back. ?Do stretching exercises to help with flexibility. ?Develop strong abdominal muscles. Your abdominal muscles provide a lot of the support that your back needs. Maintain a healthy weight. This helps to decrease your risk of a back injury. Good posture Prevent back injuries by developing and maintaining a good posture. To do this successfully: Sit up and stand up straight. Avoid leaning forward when you sit or hunching over when you stand. Choose chairs that have good low-back (lumbar) support. If you work at a desk, sit close to it so you do not need to lean over. Keep your chin tucked in. Keep your neck drawn back, and keep your elbows bent at a right angle. Sit high and close to the steering wheel when you drive. Add lumbar support to your car seat, if needed. Avoid sitting or standing in one position for very long. Take breaks to get up, stretch, and walk around at least one time every hour. Take breaks every hour if you are driving for long periods of time. Sleep on your side with your knees slightly bent, or sleep on your back with a pillow under your knees. Keep your head and neck in a straight line with your spine (neutral position) when using electronicequipment like smartphones or tablets. To do this: ?Raise your smartphone or tablet to look at it instead of bending your head or neck to look down. ?Put the smartphone or tablet at the level of your face while looking at the screen. Lifting, twisting, and reaching Back injuries are more likely to occur when carrying loads and bending or twisting at the same time. When you bend and lift, or reach for items that are high up on shelves, use positions that put less stress on your back. Heavy lifting ?Avoid heavy lifting, especially the kind of heavy lifting that is repetitive. If you must do heavylifting: ?Stretch before lifting. ?Work slowly. ?Rest between lifts. ?Use a tool such as a cart or a alberto to move objects. ?Make several small trips instead of carrying one heavy load. ?Ask for help when you need it, especially when moving big or heavy objects. ?Follow these steps when lifting: ?Stand with your feet shoulder-width apart. ?Get as close to the object as you can. Do not try to flower picker a heavy object that is far from your body. ?Use handles or lifting straps if they are available. ?Bend at your knees. Squat down, but keep your heels off the floor. ?Keep your shoulders pulled back, your chin tucked in, and your back straight. ?Lift the object slowly while you tighten the muscles in your legs, abdomen, and buttocks. Keep theobject as close to the center of your body as possible. ?Follow these steps when putting down a heavy load: ?Stand with your feet shoulder-width apart. ?Lower the object slowly while you tighten the muscles in your legs, abdomen, and buttocks. Keep the object as close to the center of your body as possible. ?Keep your shoulders pulled back, your chin tucked in, and your back straight. ?Bend at your knees. Squat down, but keep your heels off the floor. ?Use handles or lifting straps if they are available. Twisting and reaching ?Avoid lifting heavy objects above your waist. ?Do not twist at your waist while you are lifting or carrying a load. If you need to turn, move your feet. ?Do not bend over without bending at your knees. ?Avoid reaching over your head, across a table, or for an object on a high surface. Other things to do Avoid wet floors and icy ground. Keep sidewalks clear of ice to prevent falls. Do not sleep on a mattress that is too soft or too hard. Put heavier objects on shelves at waist level, and put wringer and setter objects on lower or higher shelves. Find ways to decrease your stress, such as by exercising, getting a massage, or practicing relaxation techniques. Stress can build up in your muscles. Tense muscles are more vulnerable to injury. Talk with your health care provider if you feel anxious or depressed. These conditions can make back pain worse. Wear flat heeled shoes with cushioned soles. Use both shoulder straps when carrying a backpack. Do not use any products that contain nicotine or tobacco. These products include cigarettes, chewing tobacco, and vaping devices, such as e-cigarettes. If you need help quitting, ask your health careprovider. Summary Back injuries can be very painful and difficult to heal. You can prevent injuring or re-injuring your back by making nutrition changes, working on being physically fit, developing a good posture, and lifting heavy objects in a safe way. Ask your health care provider how much calcium and vitamin D you need each day. These nutrients help to prevent weakening of the bones (osteoporosis). This information is not intended to replace advice given to you by your health care provider. Make sure you discuss any questions you have with your health care provider. Document Revised: 07/13/2021 Document Reviewed: 07/13/2021 [employer] Patient Education 2022 [employer] Follow Up Care 02/03/2023 15:57:32 With:Desmond Dudley Address: [address] [place] [phone] Business (1) When:02/10/2023 17:25:31 only if needed With:Alison Whitt Address: [address] [place] [place] [address]- Business (2) When:Within 3 Day(s) [facility]11-02-2023 Evaluation + Plan noteExtracted from: Title:ED NoteAuthor:Wale BURNETTEAlana NDate:02/03/23 1. Back pain (M54.9: Dors[place] ia, unspecified) Orders: methocarbamol, 750 mg = 1 tab(s), Oral, TID, PRN as needed for pain, X 3 day(s), # 9 tab(s), Refills(s) 0, Pharmacy: [id number], 172, cm, 02/03/23 16:04:00 EDT, Height/Length Dosing, 85.2, kg, 02/03/23 16:04:00 EDT, Weight Dosing orphenadrine, 60 mg = 2 mL, Injection, IntraMuscular, Once, Stop date 02/03/23 16:39:00 EDT, STAT, Start date 02/03/23 16:39:00 EDT, 02/03/23 16:39:00 EDT predniSONE, 40 mg = 2 tab(s), Oral, Daily, X 5 day(s), # 10 tab(s), Refills(s) 0, Pharmacy: [id number], 172, cm, 02/03/23 16:04:00 EDT, Height/Length Dosing, 85.2, kg, 02/03/23 16:04:00 EDT, Weight Dosing XR Spine Lumbosacral 2 or 3 Views 47-year-old female presents to the ED with complaints of atraumatic low back pain. In the ED patient is afebrile, vital signs are stable, no acute distress. Neurovascularly intact. No loss of bladderor bowel function, no saddle anesthesia. X-ray shows no acute process. Likely musculoskeletal. Patient treated with IM Toradol prior to arrival, further treated with IM Norflex in the ED. Patient educated on results and supportive care. Discharged home with prescription for prednisone and Robaxin. Instructions to follow with PCP in the next few days and with spine if symptoms do not improve in the next 1 to 2 weeks. She is to return to the ED with any new or worsening symptoms. Patient voices understanding is agreeable to plan. Future Scheduled Tests Radiology* MA Mamm Screen w/CAD if perf and 3D [place] 04/08/22 * MA Mamm Screen w/CAD if perf and 3D [place] 01/14/23 [facility]01-05-2023 Hospital Discharge instructions Patient Education 04/08/2022 14:41:13 Health Maintenance, Female Health Maintenance, Female Adopting a healthy lifestyle and getting preventive care are important in promoting health and wellness. Ask your health care provider about: The right schedule for you to have regular tests and exams. Things you can do on your own to prevent diseases and keep yourself healthy. What should I know about diet, weight, and exercise? Eat a healthy diet Eat a diet that includes plenty of vegetables, fruits, low-fat dairy products, and lean protein. Do not eat a lot of foods that are high in solid fats, added sugars, or sodium. Maintain a healthy weight Body mass index (BMI) is used to identify weight problems. It estimates body fat based on height and weight. Your health care provider can help determine your BMI and help you achieve or maintain a healthy weight. Get regular exercise Get regular exercise. This is one of the most important things you can do for your health. Most adults should: Exercise for at least 150 minutes each week. The exercise should increase your heart rate and make you sweat (moderate-intensity exercise). Do strengthening exercises at least twice a week. This is in addition to the moderate-intensity exercise. Spend less time sitting. Even light physical activity can be beneficial. Watch cholesterol and blood lipids Have your blood tested for lipids and cholesterol at 20 years of age, then have this test every 5 years. Have your cholesterol levels checked more often if: Your lipid or cholesterol levels are high. You are older than 40 years of age. You are at high risk for heart disease. What should I know about cancer screening? Depending on your health history and family history, you may need to have cancer screening at various ages. This may include screening for: Breast cancer. Cervical cancer. Colorectal cancer. Skin cancer. Lung cancer. What should I know about heart disease, diabetes, and high blood pressure? Blood pressure and heart disease High blood pressure causes heart disease and increases the risk of stroke. This is more likely to develop in people who have high blood pressure readings, are of descent, or are overweight. Have your blood pressure checked: ?Every 3 5 years if you are 18 39 years of age. ?Every year if you are 40 years old or older. Diabetes Have regular diabetes screenings. This checks your fasting blood sugar level. Have the screening done: Once every three years after age 40 if you are at a normal weight and have a low risk for diabetes. More often and at a younger age if you are overweight or have a high risk for diabetes. What should I know about preventing infection? Hepatitis B If you have a higher risk for hepatitis B, you should be screened for this virus. Talk with your health care provider to find out if you are at risk for hepatitis B infection. Hepatitis C Testing is recommended for: Everyone born from 1945 through 1965. Anyone with known risk factors for hepatitis C. Sexually transmitted infections (STIs) Get screened for STIs, including gonorrhea and chlamydia, if: ?You are sexually active and are younger than 24 years of age. ?You are older than 24 years of age and your health care provider tells you that you are at risk for this type of infection. ?Your sexual activity has changed since you were last screened, and you are at increased risk for chlamydia or gonorrhea. Ask your health care provider if you are at risk. Ask your health care provider about whether you are at high risk for HIV. Your health care providermay recommend a prescription medicine to help prevent HIV infection. If you choose to take medicineto prevent HIV, you should first get tested for HIV. You should then be tested every 3 months for as long as you are taking the medicine. If you are about to stop having your period (premenopausal) and you may become , seek counseling before you get . Take 400 to 800 micrograms (mcg) of folic acid every day if you become . Ask for control (contraception) if you want to prevent . Osteoporosis and menopause Osteoporosis is a disease in which the bones lose minerals and strength with aging. This can resultin bone fractures. If you are 65 years old or older, or if you are at risk for osteoporosis and fractures, ask your health care provider if you should: Be screened for bone loss. Take a calcium or vitamin D supplement to lower your risk of fractures. Be given hormone replacement therapy (HRT) to treat symptoms of menopause. Follow these instructions at home: Lifestyle Do not use any products that contain nicotine or tobacco, such as cigarettes, e- cigarettes, and chewing tobacco. If you need help quitting, ask your health care provider. Do not use street drugs. Do not share needles. Ask your health care provider for help if you need support or information about quitting drugs. Alcohol use Do not drink alcohol if: ?Your health care provider tells you not to drink. ?You are , may be , or are planning to become . If you drink alcohol: ?Limit how much you use to 0 1 drink a day. ?Limit intake if you are . Be aware of how much alcohol is in your drink. In the [place] one drink equals one 12 oz bottle of beer (355 mL), one 5 oz glass of wine (148 mL), or one 1 oz glass of hard liquor (44 mL). General instructions Schedule regular health, dental, and eye exams. Stay current with your vaccines. Tell your health care provider if: ?You often feel depressed. ?You have ever been abused or do not feel safe at home. Summary Adopting a healthy lifestyle and getting preventive care are important in promoting health and wellness. Follow your health care provider's instructions about healthy diet, exercising, and getting tested or screened for diseases. Follow your health care provider's instructions on monitoring your cholesterol and blood pressure. This information is not intended to replace advice given to you by your health care provider. Make sure you discuss any questions you have with your health care provider. Document Released: 10/04/2011 Document Revised: 03/14/2019 Document Reviewed: 03/14/2019 [employer] Patient Education 2020 [employer] [facility] 01-05-2023 Evaluation + Plan note Future Scheduled Tests Radiology* MA Mamm Screen w/CAD if perf and 3D [place] 04/08/22 * MA Mamm Screen w/CAD if perf and 3D [place] [facility]ments Appointment Date:09/20/2022 05:40:00 PM Scheduled Provider:Alison Whitt MD Location:[facility] Appointment Type: Open Future Scheduled Tests Radiology* MA Mamm Screen w/CAD if perf and 3D [place] 04/08/22 [facility] Evaluation + Plan note Future Appointments Appointment Date:09/20/2022 05:40:00 PM Scheduled Provider:Alison Whitt MD Location:[facility] Appointment Type: Open Diagnostic Tests Pending * Troponin 0 Hr. 04/08/22 * CBC w/ Auto Diff 04/08/22 * Comprehensive Metabolic Panel 04/08/22 * Lipid Panel 04/08/22 Future Scheduled Tests Radiology* MA Mamm Screen w/CAD if perf and 3D [place] [facility]08[facility] Future Appointments Appointment Date:05/29/2024 01:15:00 PM Scheduled Provider: Location:.[facility] Appointment Type:MA Diagnostic (FT) Appointment Date:05/29/2024 02:00:00 PM Scheduled Provider: Location:.[facility] Appointment Type:US Breast (FT) Future Scheduled Tests Radiology* US Breast Unilateral Rt Complete 05/29/24 * MA Mamm Diag w/CAD if perf and 3D RT 05/29/24 [facility] Evaluation note* Diagnosis Encounter for removal and reinsertion of IUD Encounter for insertion of Mirena IUD [facility] Diagnosis Well woman exam with routine gynecological exam Routine gynecological examination Breast cancer screening by mammogram [facility] Narrative No data available for this section [facility] Hospital Discharge instructions No data available for this section [facility] No data available for this section [facility] Summary Purpose Family History No Family History Records FoundNo Family History Records Found No data available for this section No data available for this section No Family History Records Found No data available for this section No data available for this section No Family History Records FoundNo Family History Records FoundNo Family History Records FoundNo Family History Records FoundNo Family History Records Found No data available for this section No Family History Records Found Advance Directives No Advanced Directives Records FoundNo Advanced Directives Records FoundNo Advanced Directives Records FoundNo Advanced Directives Records FoundNo Advanced Directives Records FoundNo Advanced Directives Records FoundNo Advanced Directives Records FoundNo Advanced Directives Records FoundNo Advanced Directives Records Found Additional Source Comments INFORMATION SOURCE (unrecogn ized section and content) DATE CREATED AUTHOR 10/05/2018 [facility] DATE CREATED AUTHOR AUTHOR'S ORGANIZ ATION 04/20/2022 [facility] DATE CREATED AUTHOR AUTHOR'S ORGANIZ ATION 03/28/2024 [facility] DATE CREATED AUTHOR AUTHOR'S ORGANIZ ATION 05/28/2024 [facility] DATE CREATED AUTHOR AUTHOR'S ORGANIZ ATION 01/12/2025 [facility] Patient Care team informatio n (unrecognized section and content) Personnel Name: Alison Whitt MD Address: Address: [address] [place] [address] Personnel Name: Alison Whitt MD Address: Address: [address] [place] [address] Personnel Name: Alison Whitt MD Address: Address: [facility] [place] [address] Personnel Name: Alison Whitt MD Address: Address: [address] [place] [address] Personnel Name: Alison Whitt MD Address: Address: [address] [place] [address] Personnel Name: Alison Whitt MD Address: Address: [address] [place] [address] Personnel Name: Alison Whitt MD Address: Address: [address] [place] [address] Reason for Visit (unrecogniz ed section and content) ReasonCommentsGynecologic ExamIUD removal and insertionReasonCommentsWell Women Visit FOR RECORDS PERTAINING TO PATIENTS WHO ARE OR HAVE BEEN ENROLLED IN A CHEMICAL DEPENDENCY/SUBSTANCEABUSE PROGRAM, SOME INFORMATION MAY BE OMITTED. This clinical summary was aggregated from multiple sources. Caution should be exercised in using it in the provision of clinical care. This summary normalizes information from multiple sources, and as a consequence, information in this document may materially change the coding, format and clinical context of patient data. In addition, data may be omitted in some cases. CLINICAL DECISIONS SHOULD BE BASED ON THE PRIMARY CLINICAL RECORDS. [facility] [email or web address] [facility]. provides no warranty or guarantee of the accuracy or completeness of information in this document.
--- OUTSIDE RECORDS SUMMARY | 2025-04-01 22:08 | XMS_ITS | Encounter Summary ---
Author Organization [facility] Address [address] [place] [address] Care Team Providers Care Distribution Specialist Name Role Phone Unavailable Primary Care Provider Unavailabl e Encounter Details DateTypeDepartmentCare Team (Latest Contact Info)Sdmrmxhqtho01/29/2025amboo flowsheet [facility] [address] [place] [address] Camille Ruiz PA [address] [place] [address] Social History Tobacco UseTypesPacks/DayYears UsedDateSmoking Tobacco: Never Assessed CommentsUnknownSex and Gender InformationValueDate RecordedSex Assigned at Not on fileLegal NkvTqnstq34/15/2023 7:36 PM EDTGender IdentityNot on fileSexual OrientationNot on filedocumented as of this encounter Plan of Treatment Not on file documented as of this encounter Visit Diagnoses Not on filedocumented in this encounter
--- OUTSIDE RECORDS SUMMARY | 2025-04-01 22:08 | XMS_ITS | Encounter Summary ---
Author Organization [facility] Address [address] [place] [address] Care Team Providers Care Customer Account Administrator Name Role Phone Unavailable Primary Care Provider Unavailabl e Encounter Details DateTypeDepartmentCare Team (Latest Contact Info)Ckjdzaqkvli43/28/2025Travel Social History Tobacco UseTypesPacks/DayYears UsedDateSmoking Tobacco: Never Assessed CommentsUnknownSex and Gender InformationValueDate RecordedSex Assigned at Not on fileLegal KkkMgpzqp09/15/2023 7:36 PM EDTGender IdentityNot on fileSexual OrientationNot on filedocumented as of this encounter Plan of Treatment Not on file documented as of this encounter Visit Diagnoses Not on filedocumented in this encounter
--- OUTSIDE RECORDS SUMMARY | 2025-04-01 22:08 | XMS_ITS | Clinical Summary ---
Author Organization [facility] Address [address] [place] [address] Phone Care Team Providers Care Plating And Point Assembly Supervisor Name Role Phone Unavailable Primary Care Provider Unavailabl e Social History Tobacco UseTypesPacks/DayYears UsedDateSmoking Tobacco: Never Assessed CommentsUnknownSex and Gender InformationValueDate RecordedSex Assigned at Not on fileLegal WybBnbdfo64/25/2022 4:02 PM ESTGender IdentityNot on fileSexual OrientationNot on file Plan of Treatment Not on file
--- OUTSIDE RECORDS SUMMARY | 2025-04-01 22:09 | XMS_ITS | Clinical Summary ---
Author Organization [facility] Address [address] [place] [id number] Care Team Providers Care Press Clipper Name Role Phone Carlos Gonzalez MD Primary Care Provider [phone] Allergies No known active allergies Medications MedicationSigDispense QuantityRefillsLast FilledStart DateEnd DateStatus hydrocodone-acetaminophen (VICODIN) 5-500 MG PO TABS Indications:Displacement of lumbar intervertebral disc without myelopathy, Thoracic or lumbosacral neuritis or radiculitis, unspecifiedActive methylPREDNISolone acetate (DEPO-MEDROL) 80 MG/ML IJ injection Indications:Thoracic or lumbosacral neuritis or radiculitis, unspecified1 mL by Other route Once. 1 mL ctive lidocaine 1 % IJ SOLN Indications:Thoracic or lumbosacral neuritis or radiculitis, unspecifiedAs instructed. 1 mL ctive Social History Tobacco UseTypesPacks/DayYears UsedDateSmoking Tobacco: NeverAlcohol UseStandard Drinks/WeekCommentsYes0.8 (1 standard drink = 0.6 oz pure alcohol) CommentsNoSex and Gender InformationValueDate RecordedSex Assigned at BirthNot on fileLegal WkzTnkndk57/03/2013 6:54 PM ESTGender IdentityNot on fileSexual OrientationNot on file Last Filed Vital Signs Vital SignReadingTime TakenCommentsBlood Yzxuohph770/7110 1:38 PM EDT Tnrfv299001/13/2011 1:38 PM EDTTemperature--Respiratory Ymbf8772 1:04 PM EDTOxygen Saturation--Inhaled Oxygen Concentration--Dxjmyg49.7 kg (200 lb) 01/13/2011 1:04 PM TTOQvmrwh185.3 cm (5' 9 )01/13/2011 1:04 PM EDTBody Mass Index29.5301/13/2011 1:04 PM EDT Plan of Treatment Health MaintenanceDue DateLast DoneCommentsHEPATITIS C VIRUS IKIKQFRBC15/02/1977 XASQYMS09 1976HIV SCREENING QMUSEJMMAJ54/02/1992HEP B VACCINE (1 of 3 - 19+ 3-dose series)09/04/1995TDAP (ADULT)09/04/1995CERVICAL CANCER SCREENING RJXISONYJE26/02/1998LIPID ZXGOZMJVM05/02/2017MAMMOGRAM SCREENING DISCUSSION 2016COLORECTAL CANCER SCREENING BGCSBMJATC63/02/2022COVID-19 VACCINE (2024- season)2024INFLUENZA VACCINE (#1)2024PNEUMOCOCCAL VACCINE SERIESAged OutNo longer eligible based on patient's age to complete this topic Insurance [place] [id number] Care Teams Team MemberRelationshipSpecialtyStart DateEnd Date Carlos Gonzalez MD [facility]10/28/10
--- OUTSIDE RECORDS SUMMARY | 2025-04-01 22:09 | XMS_ITS | Clinical Summary ---
Author Organization [facility] Address [address], [address] [place] [address] Care Team Providers Care Olive Grower Name Role Phone EvanElidia london Josee MARCELO Primary Care Provider Allergies Active AllergyReactionsCriticalityNoted DateCommentsMacrolides And Ketolides 02/09/2011 Medications MedicationSigDispense QuantityRefillsLast FilledStart DateEnd DateStatus naproxen (EC-NAPROSYN) 500 MG EC tablet Take 1 tablet by mouth 2 times daily (with meals) Scheduled for 5 days, then prn 60 tablet Active cephALEXin (KEFLEX) 500 MG capsule TAKE 1 TABLET BY MOUTH THREE TIMES FRAPI315Active levonorgestrel (MIRENA, 52 MG,) IUD 52 mg 1 each by Intrauterine route onceActive Active Problems No known active problems Resolved Problems ProblemNoted DateDiagnosed DateResolved DateWell woman exam with routine gynecological exam Immunizations ImmunizationAdministration DatesNext TkbHnypfniyc12/06/2015PPD Test02/19/2011 Family History Medical HistoryRelationNameCommentsDiabetesFatherHeart DiseaseFatherHigh Blood PressureFatherCancerMotherskinHigh Blood PressureMotherHypotensionSisterThyroid DiseaseSisterRelationNameStatusCommentsFatherMotherSister Social History Tobacco UseTypesPacks/DayYears UsedDateSmoking Tobacco: NeverSmokeless Tobacco: NeverAlcohol UseStandard Drinks/WeekCommentsNo0 (1 standard drink = 0.6 oz pure alcohol)PHQ-2AnswerDate RecordedPHQ-2 Pvqob800CommentsNoSex and Gender InformationValueDate RecordedSex Assigned at BirthNot on fileLegal Sex Irzilx1105/14/2012 6:45 PM ESTGender IdentityNot on fileSexual OrientationNot on file Last Filed Vital Signs Vital SignReadingTime TakenCommentsBlood Lwretvhl291/6007 1:17 PM EDT Rmqay33582/01/2019 1:17 PM WZPGfwzyexzijo93.3 ??C (99.1 ??F)10/02/2018 1:17 PM EDTRespiratory Zxoc104304/30/2015 9:31 AM ESTOxygen Mwoswafhit46%10/02/2018 1:17 PM EDTInhaled Oxygen Concentration--Grjoak17.4 kg (206 lb)10/02/2018 1:17 PM EDT Oaxcxw804.3 cm (5' 9 )03/09/2016 8:35 AM ESTBody Mass Index30.42105/10/2015 8:35 AM EST Plan of Treatment Not on file Insurance Care Teams Team MemberRelationshipSpecialtyStart DateEnd Date Elidia Baires DO [address] [place] [address] PCP - Ixrklsr55/28/15
--- OUTSIDE RECORDS SUMMARY | 2025-04-01 22:09 | XMS_ITS | Clinical Summary ---
Author Organization [facility] [place] [address] [place] [address] Care Team Providers Care Manufacturing Coordinator Name Role Phone Carlos Gonzalez MD Primary Care Provider [phone] Social History Tobacco UseTypesPacks/DayYears UsedDateSmoking Tobacco: Never Assessed CommentsUnknownSex and Gender InformationValueDate RecordedSex Assigned at Not on fileLegal KpzQjcnpo13/20/2012 5:43 PM ESTGender IdentityNot on fileSexual OrientationNot on file Plan of Treatment Health MaintenanceDue DateLast DoneCommentsMMR (1 of 1 - Standard series) 1977Tetanus Diphtheria and Pertussis Vaccines (1 - Tdap)09/04/1983MenB (1 of 2 - MenB 2-Dose Series Bexsero)1992Hepatitis B (1 of 3 - 19+ 3-dose series)09/04/1995COVID-19 ( season)2024FLU (#1)12/03/2024HIB Aged OutNo longer eligible based on patient's age to complete this topicHPVAged OutNo longer eligible based on patient's age to complete this topicHepatitis A Aged OutNo longer eligible based on patient's age to complete this topicMenACWY Aged OutNo longer eligible based on patient's age to complete this topic NirsevimabAged OutNo longer eligible based on patient's age to complete this topicPneumococcalAged OutNo longer eligible based on patient's age to complete this topicPolioAged OutNo longer eligible based on patient's age to complete this topicRotavirusAged OutNo longer eligible based on patient's age to complete this topic Care Teams Team MemberRelationshipSpecialtyStart DateEnd Date Mayer, MD Carlos [address] [id number] PCP - Lvlmsgb75/10/16
--- OUTSIDE RECORDS SUMMARY | 2025-04-01 22:09 | XMS_ITS | Clinical Summary ---
Author Organization [facility] Address [address] [place] [id number] Care Team Providers Care Promotions Representative Name Role Phone Unavailable Primary Care Provider Unavailabl e Allergies Active AllergyReactionsCriticalityNoted DateCommentsMacrolide Antibiotics 03/17/2004 Medications MedicationSigDispense QuantityRefillsLast FilledStart DateEnd DateStatus VICODIN 5/500 TABLET one tablet every 4 to 6 hours prn for tcop12305/18/2003Active AMBIEN 10 MG TABLET Take one(1) tablet daily at bedtime as needed for sleep.Active RELPAX 40 MG TABLET one as needed for wgasfemt859/14/2004Active NECON 1/35-28 TABLET one rftb809Active CYMBALTA 60 MG CAPSULE Take one(1) tablet daily.Active ARTHROTEC 75 TABLET EC 1 tab po qd 30 Active SKELAXIN 800 MG TABLET 1 tab po bid 60 Active Active Problems ProblemNoted DateDiagnosed DateMyalgia and myositis, yqhrmswbega26/12/2005Other symptoms referable to back04/15/2004 Social History Tobacco UseTypesPacks/DayYears UsedDateSmoking Tobacco: NeverAlcohol UseStandard Drinks/WeekCommentsYes0 (1 standard drink = 0.6 oz pure alcohol)occasionally CommentsNoSex and Gender InformationValueDate RecordedSex Assigned at BirthNot on fileLegal EbeHsinyv88/02/2012 9:56 AM ESTGender IdentityNot on file Sexual OrientationNot on file Last Filed Vital Signs Vital SignReadingTime TakenCommentsBlood Vtzqicie035/8603/17/2004 12:48 PM EST Upodu48356/14/2004 12:48 PM ESTTemperature--Respiratory Rate--Oxygen Saturation- -Inhaled Oxygen Concentration--Bjipsj79.6 kg (171 lb)03/17/2004 12:48 PM EST Height--Body Mass Index-- Plan of Treatment Health MaintenanceDue DateLast DoneCommentsAnxiety Jeanbrxsd76/02/1995Depression Sapscqqgw56/02/1995HIV Ehymfmaiu31/02/1995Hepatitis C Hhwcifdts86/02/1995 DTaP,Tdap,Td Vaccine (1 - Tdap)09/04/1995Hepatitis B Vaccine (1 of 3 - 19+ 3- dose series)09/04/1995Cervical Cancer Emwmmmbdm92/02/1998Mammogram Screening 2016CT Hwhoqyifvsws19/02/2022Cologuard (FIT-DNA)2Colonoscopy 2Colorectal Cancer Bvtxavuxg89/02/2022Diabetes Vghsnhgsy53/02/2022Fecal Occult Blood2021Lipid Uyguqokad92/02/8138Pjvqhkupcfjdr97/02/2022ovid-19 Vaccine ( season)2024Influenza Vaccine (#1)2024
--- OUTSIDE RECORDS SUMMARY | 2025-04-01 22:09 | XMS_ITS | Clinical Summary ---
Author Organization [facility] Address [address] [facility] [place] [address] Care Team Providers Care Soaking Room Operator Name Role Phone Unavailable Primary Care Provider Unavailabl e Allergies Active AllergyReactionsCriticalityNoted DateCommentsMacrolides And Ketolides 03/17/2004 Medications MedicationSigDispense QuantityRefillsLast FilledStart DateEnd DateStatus nitrofurantoin, macrocrystal-monohydrate, (Macrobid) 100 MG capsule Take 100 mg by mouth in the morning and 100 mg before bedtime.03/22/2024ctive Levonorgestrel 20 MCG/DAY intrauterine device 1 each by Intrauterine routeActive Encounters DateTypeDepartmentCare BkuiGhzplkxbjhq56/29/2025 9:30 AM ESTProcedure Visit [facility] [address] [place] [address] Camille Ruiz PA Well woman exam with routine gynecological exam; Breast cancer screening by unykgdskv53/29/2025amboo flowsheet [facility] [address] [id number] Camille Ruiz PA 03/31/2025Travelfrom Last 3 Months Social History Tobacco UseTypesPacks/DayYears UsedDateSmoking Tobacco: Never Assessed CommentsUnknownSex and Gender InformationValueDate RecordedSex Assigned at Not on fileLegal WnfYhoycb07/15/2023 7:36 PM EDTGender IdentityNot on fileSexual OrientationNot on file Last Filed Vital Signs Vital SignReadingTime TakenCommentsBlood Lspczkqu697/7204/01/2025 9:36 AM EST Pulse--Temperature--Respiratory Rate--Oxygen Saturation--Inhaled Oxygen Concentration--Ooymrw89.7 kg (200 lb)04/01/2025 9:36 AM ESTHeight--Body Mass Index-- Plan of Treatment Health MaintenanceDue DateLast DoneCommentsCT Otbloduyfgwm09/02/1977Colonoscopy 1976Colorectal Cancer Ynidcebvl48/02/1977FIT-DNA1976FIT1976 FOBT1976 9682Heuzlbkhhactr41/02/1977HPV/Upesrw1209/03/20063883Qpvbvjgee65/16/2024 04/19/2022ervical Cancer Opcefrlmi96/23/2027Pap Smear7105/27/2023 Influenza OhxenztNqfjszuzn95/09/2025, 02/02/2024, 01/14/2023, Additional history existsPneumococcal Vaccine: Pediatrics (0 to 5 Years) and At-Risk Patients (6 to 64 Years)Aged OutNo longer eligible based on patient's age to complete this topic Procedures Procedure NamePriorityDate/TimeAssociated DiagnosisCommentsPAP SMEARRoutine 03/26/2024 12:00 AM ESTBI MAMMOGRAM SCREENING TOMOSYNTHESIS BILATERALRoutine 04/19/2022 from Last 3 Months or Most Recently Relevant to Health Maintenance Results * Pap Smear (03/26/2024 12:00 AM EST)Specimen (Source)Anatomical Location / LateralityCollection Method / VolumeCollection TimeReceived TimeSwabCervical swab / Unknown Narrative Authorizing ProviderResult TypeResult StatusCorey Naseem ALVARES CYTOLOGY ORDERABLESFinal ResultPerforming OrganizationAddressCity/State/ZIP CodePhone Number EXTERNAL LAB * Bilateral screening mammogram with tomosynthesis (04/19/2022)Anatomical Region LateralityModalityBreastBilateralMammographySpecimen (Source)Anatomical Location / LateralityCollection Method / VolumeCollection TimeReceived Time Narrative 04/19/2022 12:00 AM EST PERFORMED AT [facility] LOCATION:[address] Patient: ? JOE CREWS LLuis ? Exam Date: ? 04/19/2022 : ? 1975 ?Gender:F ? Ordering : ? DR GERBER NERI . ? Admission #: ? [id number] Family : ? DR. ALISON WHITT . ? Order #: ? [id number] ? CLICK HERE TO VIEW EXAM RADIOLOGY REPORT PROCEDURE: ? MAMMOGRAM SCREENING 3D BILATERAL CAD COMPARISON: ? MG MAMM SCREEN LEVAR W CAD 03/06/2019. ??MG MAMM SCREEN 3D LEVAR CAD 09/02/2020. INDICATIONS: ? Screening mammography Calculator Name ? NCI Breast Cancer Risk Assessment Tool 5 Year Breast Cancer Risk ? 1.10% Lifetime Breast Cancer Risk ? 13.00% Personal Breast Cancer ?No Personal Ovarian Cancer ? No Treatments ? None Family Cancers ? Aunt-maternal with breast cancer at age 50; Aunt-maternal with breast cancer at age 50. LOCATION: ? [facility] BREAST COMPOSITION: ? Extremely dense which lowers the sensitivity of mammography. FINDINGS: DIAGNOSTIC CATEGORY 2--BENIGN FINDING. NO CHANGE FROM COMPARISON. Scattered benign-appearing lymph nodes are present. ??Scattered benign-appearing calcifications are present. RIGHT BREAST: ??No significant suspicious finding. LEFT BREAST: ??No significant suspicious finding. RECOMMENDATIONS: ROUTINE MAMMOGRAM AND CLINICAL EVALUATION IN 12 MONTHS. PLEASE NOTE: ??A NORMAL MAMMOGRAM DOES NOT EXCLUDE THE POSSIBILITY OF BREAST CANCER. ??A CLINICALLY SUSPICIOUS PALPABLE LUMP SHOULD BE BIOPSIED. Dictated by: Miguel Chin MD on 04/20/2022 at 10:09 Approved by: Miguel Chin MD on 04/20/2022 at 10:13 Procedure Note CONVERSION, GENERIC - 10/08/2022 PERFORMED AT [facility] LOCATION:[address] Patient: JOE Gomez Exam Date: 04/19/2022 : 1975 Gender:F Ordering : DR GERBER NERI . Admission #: [id number] Family : DR. ALISON WHITT . Order #: [id number] CLICK HERE TO VIEW EXAM RADIOLOGY REPORT PROCEDURE: MAMMOGRAM SCREENING 3D BILATERAL CAD COMPARISON: MG MAMM SCREEN LEVAR W CAD 03/06/2019. MG MAMM SCREEN 3D LEVAR CAD 09/02/2020. INDICATIONS: Screening mammography Calculator Name NCI Breast Cancer Risk Assessment Tool 5 Year Breast Cancer Risk 1.10% Lifetime Breast Cancer Risk 13.00% Personal Breast Cancer No Personal Ovarian Cancer No Treatments None Family Cancers Aunt-maternal with breast cancer at age 50; Aunt-maternal with breast cancer at age 50. LOCATION: [facility] BREAST COMPOSITION: Extremely dense which lowers the sensitivity of mammography. FINDINGS: DIAGNOSTIC CATEGORY 2--BENIGN FINDING. NO CHANGE FROM COMPARISON. Scattered benign-appearing lymph nodes are present. Scattered benign-appearing calcifications are present. RIGHT BREAST: No significant suspicious finding. LEFT BREAST: No significant suspicious finding. RECOMMENDATIONS: ROUTINE MAMMOGRAM AND CLINICAL EVALUATION IN 12 MONTHS. PLEASE NOTE: A NORMAL MAMMOGRAM DOES NOT EXCLUDE THE POSSIBILITY OFBREAST CANCER. A CLINICALLY SUSPICIOUS PALPABLE LUMP SHOULD BE BIOPSIED. Dictated by: Miguel Chin MD on 04/20/2022 at 10:09 Approved by: Miguel Chin MD on 04/20/2022 at 10:13 Authorizing ProviderResult TypeResult StatusCorey Naseem DOIMG BI PROCEDURESFinal Result from Last 3 Months or Most Recently Relevant to Health Maintenance Insurance
[2025-04-03 21:07] LABS: Age Gdln ACOG Testing Note (.); IGP, Aptima HPV, rfx 16/18,45 Note (.)
== END 2025-04-01 22:06 | disposition home or self-care (01) ==
LOC: LAB 22:05
PROVIDERS: PCP Family Medicine; Visit Provider Physician Assistant
DX: Z01.419 Encounter for gynecological examination (general) (routine) without abnormal findings (principal)
CPT/HCPCS: 87624; 88175